=== PATIENT | female | born 1985 | race Caucasian/White ===

== ENCOUNTER → 2017-01-23 | Outpatient (CLI) | payer BC | LOC: MW.CHOBGYN 10:32 | PROVIDERS: ATTEND Nurse Practitioner Women's Health | DX: K92.1 Melena (principal) | CPT/HCPCS: 82272; 83630; 87324 ==

== ENCOUNTER 2019-08-05 06:32 | Day surgery (SDC) | payer BC ==
[2019-08-05] MEDS ORDERED: Midazolam 1 MG/ML 2 ML SDV ONE (07:32)
[2019-08-05] MEDS ORDERED: fentaNYL 100 MCG/2 ML SDV ONE ×2 (07:33→10:28)
[2019-08-05] MEDS ORDERED: Lidocaine 2% 5 ML SDV ONE (07:34)
[2019-08-05] MEDS ORDERED: Propofol 200 MG/20 ML SDV ONE (07:36)
[2019-08-05] MEDS ORDERED: Vasopressin 20 Units/1 ML MDV ONE (07:37)
[2019-08-05] MEDS ORDERED: Methylene Blue 50 MG/10 ML Ampule ONE (07:37)
[2019-08-05] MEDS ORDERED: Rocuronium 100 MG/10 ML Syringe ONE (07:37)
[2019-08-05] MEDS ORDERED: Bupivacaine 0.25% 10 ML SDV ONE (07:37)
[2019-08-05] MEDS ORDERED: Fluorescein 5 ML Vial ONE (07:37)
--- NOTE | 2019-08-05 07:46 | PCM.PREANE ---
Preanesthetic Assessment - Anesthesia/Transfusion/Family Hx Anesthesia History: Prior Anesthesia Without Reaction Family History of Anesthesia Reaction: No Transfusion History: No Prior Transfusion(s) Intubation History: Unknown - Review of Systems General: No Symptoms Pulmonary: No Symptoms Cardiovascular: No Symptoms Gastrointestinal: No Symptoms Neurological: No Symptoms Other: Reports: Anxiety - Physical Assessment Vital Signs: Last Vital Signs Temp 97.5 F 08/05/19 06:53 Pulse 100 08/05/19 06:53 Resp 14 08/05/19 06:53 BP 120/81 08/05/19 06:53 Pulse Ox 97 08/05/19 06:53 Height: 5 ft 3 in Weight: 66.678 kg ASA Class: 2 Mental Status: Alert & Oriented x3 Airway Class: Mallampati = 2 Dentition: Reports: Normal Dentition ROM/Head Extension: Full Lungs: Clear to Auscultation, Normal Respiratory Effort Cardiovascular: Regular Rate, Regular Rhythm - Lab Values: Laboratory Last Values WBC 5.87 K/uL (4.0-11.0) 08/05/19 06:45 RBC 4.41 M/uL (4.30-5.90) 08/05/19 06:45 Hgb 13.1 g/dL (12.0-16.0) 08/05/19 06:45 Hct 39.6 % (36.0-46.0) 08/05/19 06:45 MCV 89.8 fL (80.0-98.0) 08/05/19 06:45 MCH 29.7 pg (27.0-32.0) 08/05/19 06:45 MCHC 33.1 g/dL (31.0-37.0) 08/05/19 06:45 RDW Std Deviation 43.3 fl (28.0-62.0) 08/05/19 06:45 RDW Coeff of Rip 13 % (11.0-15.0) 08/05/19 06:45 Plt Count 217 K/uL (150-400) 08/05/19 06:45 MPV 11.00 fL (7.40-12.00) 08/05/19 06:45 Neut % (Auto) 48.7 % (48.0-80.0) 08/05/19 06:45 Lymph % (Auto) 39.9 % (16.0-40.0) 08/05/19 06:45 Howell % (Auto) 11.2 % (0.0-15.0) 08/05/19 06:45 Eos % (Auto) 0.0 % (0.0-7.0) 08/05/19 06:45 Baso % (Auto) 0.2 % (0.0-1.5) 08/05/19 06:45 Neut # (Auto) 2.9 K/uL (1.4-5.7) 08/05/19 06:45 Lymph # (Auto) 2.3 K/uL (0.6-2.4) 08/05/19 06:45 Howell # (Auto) 0.7 K/uL (0.0-0.8) 08/05/19 06:45 Eos # (Auto) 0.0 K/uL (0.0-0.7) 08/05/19 06:45 Baso # (Auto) 0.0 K/uL (0.0-0.1) 08/05/19 06:45 Nucleated RBC % 0.0 /100WBC 08/05/19 06:45 Nucleated RBCs # 0 K/uL 08/05/19 06:45 HCG, Qual NEGATIVE (NEG) 08/05/19 06:45 - Allergies Allergies/Adverse Reactions: Allergies Allergy/AdvReac Type Severity Reaction Status Date / Time No Known Allergies Allergy Verified 07/31/19 08:35 - Blood Blood Available: No - Acknowledgements Anesthesia Type Planned: General Anesthesia Pt an Appropriate Candidate for the Planned Anesthesia: Yes Alternatives and Risks of Anesthesia Discussed w Pt/Guardian: Yes Pt/Guardian Understands and Agrees with Anesthesia Plan: Yes Additional Comments: Anes prob list: sorgrens- eyes and mouth, AUB- prob fibroids, palpitations- thought to be benign, anxiety, PLAN: GET PreAnesthesia Questionnaire HEENT History: Reports: Other (See Below) Other HEENT History: wears glasses, has bottom permanent retainer, chronic sinusitis Cardiovascular History: Reports: None Respiratory History: Reports: None Gastrointestinal History: Reports: None Genitourinary History: Reports: None 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 Musculoskeletal History: Reports: Fracture Neurological History: Reports: None Psychiatric History: Reports: None Endocrine/Metabolic History: Reports: None Hematologic History: Reports: None Immunologic History: Reports: Other (See Below) Oncologic (Cancer) History: Reports: None Dermatologic History: Reports: None - Infectious Disease History Infectious Disease History: Reports: Chicken Pox - Past Surgical History Head Surgeries/Procedures: Reports: None HEENT Surgical History: Reports: Tonsillectomy Cardiovascular Surgical History: Reports: None Respiratory Surgical History: Reports: None GI Surgical History: Reports: Cholecystectomy Female Surgical History: Reports: None Endocrine Surgical History: Reports: None Neurological Surgical History: Reports: None Musculoskeletal Surgical History: Reports: Other (See Below) Other Musculoskeletal Surgeries/Procedures:: Right and left arm surgery, (left x3, rt x1) with hardware removal Oncologic Surgical History: Reports: None Dermatological Surgical History: Reports: Other (See Below) - SUBSTANCE USE Smoking Status *Q: Former Smoker Recreational Drug Use History: No - HOME MEDS Home Medications: Home Meds Norgestimate-Ethinyl Estradiol [Ortho Tri-Cyclen 28 Tablet] 1 tab PO DAILY 10/15 [History] Zolpidem Tartrate [Zolpidem Tartrate ER] 1 tab PO BEDTIME PRN 10/15/18 [History] LORazepam [Ativan] 1 tab PO ONETIME 07/31/19 [History] Sertraline HCl 50 mg PO DAILY 07/31/19 [History] - CURRENT (IN HOUSE) MEDS Current Meds: Current Medications Discontinued Medications Bupivacaine HCl (Sensorcaine-Mpf 0.25%) Confirm Administered Dose 20 ml .ROUTE .STK-MED ONE Stop: 08/05/19 07:38 Fentanyl (Sublimaze) Confirm Administered Dose 100 mcg .ROUTE .STK-MED ONE Stop: 08/05/19 07:34 Fluorescein Sodium (Ak-Fluor) Confirm Administered Dose 5 ml .ROUTE .STK-MED ONE Stop: 08/05/19 07:38 Lidocaine (Xylocaine-Mpf 2%) Confirm Administered Dose 5 ml .ROUTE .STK-MED ONE Stop: 08/05/19 07:35 Methylene Blue (Provayblue) Confirm Administered Dose 50 mg .ROUTE .STK-MED ONE Stop: 08/05/19 07:38 Midazolam HCl (Versed 1 Mg/Ml) Confirm Administered Dose 2 mg .ROUTE .STK-MED ONE Stop: 08/05/19 07:33 Propofol (Diprivan 20 Ml) Confirm Administered Dose 200 mg .ROUTE .STK-MED ONE Stop: 08/05/19 07:37 Rocuronium [place] (Zemuron) Confirm Administered Dose 100 mg .ROUTE .STK-MED ONE Stop: 08/05/19 07:38 Vasopressin (Vasopressin) Confirm Administered Dose 20 units .ROUTE .[place]-MED ONE Stop: 08/05/19 07:38
[2019-08-05] MEDS ORDERED: Ondansetron 4 MG/2 ML SDV ONE (09:59)
[2019-08-05] MEDS ORDERED: ePHEDrine 50 MG/ML SDV ONE (10:04)
[2019-08-05] MEDS ORDERED: Glycopyrrolate 0.2 MG/ML SDV ONE (10:04)
[2019-08-05] MEDS ORDERED: Ketorolac 30 MG/ML SDV ONE (10:05)
[2019-08-05] MEDS ORDERED: Sugammadex Sodium 200 MG/2 ML VIAL ONE (10:08)
--- NOTE | 2019-08-05 10:35 | PCM.OPNOTE ---
- General Post-Op/Procedure Note Date of Surgery/Procedure: 08/05/19 Operative Procedure(s): Diagnositc hysteroscopy and operative laparoscopy with peritoneal and chromopertubation Findings: Uterus 10 cm size anteverted, uterine cavity normal. Anterior intramural fibroid along with pedunculated fibroid on uterine fundus. Endocervical and endometrial curettings were collected and sent to pathology. Three dark implants were found in anterior culd-a-sac and biopsied. Pre Op Diagnosis: Pelvic pain, irregular periods, uterine fibroids Post-Op Diagnosis: Pelvic pain, irregular periods, uterine fibroids Anesthesia Technique: General ET Tube Primary Surgeon: Ruba Gruber Secondary Surgeon: Mike Downey Anesthesia Provider: Caesar Briscoe Core Microarchitect: Bebo John Pathology: 1. Anterior culdesac biopsy 2. Left anterior culdesac biopsy 3. Endocervical curettings 4. Endometrial curettings Fluid Replacement, Intraop: 1,600 EBL in mLs: 10 Drain/Tube Comments:: Hysteroscopic deficit was 20mL Complications: None known Condition: Good
[2019-08-05] MEDS ORDERED: HYDROmorphone 2 MG/ML Syringe IVPUSH PRN (10:43)
[2019-08-05] MEDS ORDERED: Acetaminophen 1,000 MG in Premix Bag 1 BAG IV PRN (10:43)
[2019-08-05] MEDS ORDERED: Acetaminophen/oxyCODONE 325-5 MG Tab PO PRN (11:52)
[2019-08-05 12:32] VITALS: BP 116/80; PULSE 100
--- NOTE | 2019-08-05 12:38 | PCM48HPAN ---
Post Anesthesia Note - EVALUATION WITHIN 48HRS OF ANESTHETIC Vital Signs in Normal Range: Yes Patient Participated in Evaluation: Yes Respiratory Function Stable: Yes Airway Patent: Yes Cardiovascular Function Stable: Yes Hydration Status Stable: Yes Pain Control Satisfactory: Yes Nausea and Vomiting Control Satisfactory: Yes Mental Status Recovered: Yes Vital Signs: Last Vital Signs Temp 97.2 F 08/05/19 11:45 Pulse 100 08/05/19 12:31 Resp 14 08/05/19 12:31 BP 116/80 08/05/19 12:31 Pulse Ox 98 08/05/19 12:31
--- NOTE | 2019-08-05 12:38 | PCM.POSTAN ---
POST ANESTHESIA ASSESSMENT - MENTAL STATUS Mental Status: Alert, Oriented - VITAL SIGNS Vital Signs: Last Vital Signs Temp 97.2 F 08/05/19 11:45 Pulse 100 08/05/19 12:31 Resp 14 08/05/19 12:31 BP 116/80 08/05/19 12:31 Pulse Ox 98 08/05/19 12:31 - RESPIRATORY Respiratory Status: Respiratory Rate WNL, Airway Patent, O2 Saturation Stable - CARDIOVASCULAR CV Status: Pulse Rate WNL, Blood Pressure Stable - GASTROINTESTINAL GI Status: No Symptoms - POST OP HYDRATION Hydration Status: Adequate & Stable
--- NOTE | 2019-08-05 13:17 | OR ---
SURGEON: Ruba Gruber M.D. DATE OF PROCEDURE: 08/05/2019 PREOPERATIVE DIAGNOSES: Pelvic pain, uterine fibroids, abnormal bleeding. POSTOPERATIVE DIAGNOSES: Pelvic pain, uterine fibroids, abnormal bleeding, and endometriosis. PROCEDURES: Diagnostic hysteroscopy with fractional D and C, operative laparoscopy, biopsy and ablation of endometriosis, chromopertubation. PRIMARY SURGEON: Ruba Gruber M.D. FORESTRY SUPPORT SPECIALIST: Mike Downey MS-4. ANESTHESIA: General endotracheal. FLUIDS: 1600 mL crystalloid. ESTIMATED BLOOD LOSS: 10 mL. FINDINGS: Uterus 10 week size, anteverted, sounds to 7 cm. Hysteroscopic evaluation of the uterine cavity was normal with some redundant frondlike endometrium. Upon laparoscopy, there was an anterior intramural fibroid which was not pushing on the uterine cavity. There was also a pedunculated fundal fibroid. Bilateral tubes and ovaries appeared normal. Bilateral tubes were patent. In the anterior cul-de-sac, there were 3 dark implants consistent with endometriosis. No other discrete areas of endometriosis identified. The appendix appeared normal. The liver appeared normal. The gallbladder appeared surgically absent. COMPLICATIONS: None known. DISPOSITION: Stable to recovery. BRIEF HISTORY: This is a 34-year-old female. She has a long history of pelvic pain with pain starting from the time of ovulation up until the onset of menses. This has been getting worse over recent months. She has had evaluation for urinary tract infections, which has been negative or equivocal. Ultrasound just shows the known uterine fibroids and therefore she did desire to proceed with a diagnostic, possible operative laparoscopy with possible biopsy or ablation of endometriosis, lysis of adhesions, and other surgery as indicated. Due to the known fibroids to evaluate the endometrial cavity, she does desire to proceed with diagnostic possible operative hysteroscopy with fractional D and C with surgical risks discussed including bleeding, infection, uterine perforation with injury to surrounding organs, risk of fluid overload, risk of injury to visceral organs, risk of anesthesia, risk of thromboembolic event. Understanding all these risks, she does desire to proceed. DESCRIPTION OF PROCEDURE: With the patient in dorsal lithotomy position, under adequate general endotracheal anesthesia, the abdomen was prepped with chlorhexidine. The vaginal area was prepped with Betadine and draped in the usual fashion for laparoscopic vaginal surgery. The bladder was drained with a red Villanueva catheter. An appropriate time-out was held. Bimanual examination was performed with findings of a 10-week size anteverted uterus. Speculum was placed in the vagina. The cervix accepted a 5 mm hysteroscope without any dilatation. It had been sounded to 7 cm. The uterine cavity was well visualized. There was frondlike endometrium, somewhat irregular. Bilateral tubal ostia were visualized and appeared normal. There was no evidence of any protruding fibroid. The hysteroscope was completed with 20 mL deficit of normal saline. Sharp curettage of the endocervix was performed, and collected with a Cytobrush, sent for pathology specimen of endocervical curettings. Sharp curettage of the endometrium was then performed with a moderate amount of tissue obtained. ZUMI uterine manipulator was then placed into the uterine cervix. The speculum was removed. Marine Electrician Apprentice's gloves were changed. The patient was placed in a flat position and attention was then turned abdominally, where 3 mL of 0.25% Marcaine were injected inferior to the umbilicus. A transverse 6 mm incision was made with a scalpel. The anterior abdominal wall was elevated. Veress needle was inserted. Opening pressure was 3 mmHg. CO2 was insufflated to develop an adequate pneumoperitoneum of 13 mmHg. The 5 mm port was placed. A 5 mm laparoscope was placed into the abdominal cavity. There was no evidence of any trauma beneath the port placement site. The uterus was elevated. The pelvis was carefully inspected. The patient was placed in Trendelenburg position. Findings were as noted above, and a second port was placed 2 cm medial and cephalad from the anterior superior iliac spine on the left under direct visualization without any difficulty. The pelvis was then carefully inspected. The tubes and ovaries were inspected as well as the ovarian fossa, the posterior cul-de-sac and the anterior cul-de-sac with the finding of approximately 3 dark implants in the anterior cul-de-sac which were biopsied using the cup biopsy and cautery and 2 good biopsies were obtained, one on the right and one more toward the medial left and this also removed all the evidence of endometriosis, therefore further ablation was not required. The appendix and liver were inspected and were normal. The chromopertubation was performed. There was good flow from bilateral tubes. This being complete, the abdomen was desufflated. After the instruments were removed, the port sites were removed and the skin was closed with a running subcuticular suture of 4-0 Monocryl, followed by a Steri- Strip. The ZUMI uterine manipulator was removed. Final sponge, needle, and instrument counts were reported as correct. There were no known complications. The patient was transferred to recovery in good condition. MAC HAINES /[id number]
== END 2019-08-05 12:42 | disposition home or self-care (01) ==
LOC: MW.SDS 06:32
PROVIDERS: ATTEND Obstetrics & Gynecology
DX: N80.9 Endometriosis, unspecified (principal); Z87.891 Personal history of nicotine dependence; Z79.899 Other long term (current) drug therapy; Z79.890 Hormone replacement therapy
CPT/HCPCS: 36415; 58563; 84703; 85025; A9270; J0131; J1170; J1885; J2001; J2250; J2405; J2704; J3010; J3490; 88305

== ENCOUNTER 2020-07-10 11:33 | Inpatient (IN) | payer BC, OTHER ==
[2020-07-10 12:41] LABS: BLOOD UREA NITROGEN,BUN 10 mg/dL (7.0-18.0); CARBON DIOXIDE,CO2 22.8 mmol/L (21.0-32.0); CHLORIDE,CL 101 mmol/L (98-107); GLUCOSE RANDOM 120 mg/dL (74-106); POTASSIUM,K 3.8 mmol/L (3.5-5.1); SODIUM,NA 132 mmol/L (136-145)
--- NOTE | 2020-07-10 13:03 | US ---
Biophysical profile: Multiple real-time images were obtained transabdominally. Comparison: Previous obstetrical ultrasound of 05/22/20 is available. presentation: Cephalic Amniotic fluid: VELVET 12.37 cm Heart rate: 120 BPM Biophysical profile: movement 2, breathing movement 2, tone 2, amniotic fluid volume 2 Impression: 1. Single intrauterine gestation currently cephalic in presentation. 2. 8 out of 8 on biophysical profile. Diagnostic code #1 This report was dictated in MDT
[2020-07-10] MEDS ORDERED: Carboprost Tromethamine 250 MCG/1 ML Amp IM PRN (13:21)
[2020-07-10] MEDS ORDERED: Misoprostol 200 MCG Tab PO PRN (13:21)
[2020-07-10] MEDS ORDERED: Sodium Chloride 0.9% 2.5 ML Syringe FLUSH PRN ×2 (13:21→13:27)
[2020-07-10] MEDS ORDERED: Butorphanol 1 MG/ML SDV IVPUSH PRN (13:21)
[2020-07-10] MEDS ORDERED: Ondansetron 4 MG/2 ML SDV IVPUSH PRN (13:21)
[2020-07-10] MEDS ORDERED: Methylergonovine 0.2 MG/1 ML Amp IM PRN (13:21)
[2020-07-10] MEDS ORDERED: Tranexamic Acid 1,000 MG in Sodium Chloride 0.9% 100 ML IV PRN (13:21)
[2020-07-10] MEDS ORDERED: Lidocaine 1% 50 ML MDV INJECT PRN (13:21)
[2020-07-10] MEDS ORDERED: Water For Irrigation,Sterile 1,000 ML Container IRR PRN (13:21)
[2020-07-10] MEDS ORDERED: Nalbuphine 10 MG/1 ML Vial IVPUSH PRN (13:21)
[2020-07-10] MEDS ORDERED: Sodium Chloride 0.9% 10 ML SDV IV PRN ×2 (13:21→13:27)
[2020-07-10] MEDS ORDERED: Sodium Chloride 0.9% 10 ML Syringe FLUSH PRN ×2 (13:21→13:27)
[2020-07-10] MEDS ORDERED: Misoprostol 25 MCG (1/4 of 100 MCG) Tab VAG PRN (13:25)
[2020-07-10] MEDS ORDERED: Terbutaline 1 MG/ML SDV SUBCUT PRN (13:25)
[2020-07-10] MEDS ORDERED: Magnesium Sulfate/Water 4 GM in Premix Bag 1 BAG IV ONE (13:27)
[2020-07-10] MEDS ORDERED: Calcium Gluconate 10% 1 GM/10 ML SDV IV PRN (13:27)
[2020-07-10] MEDS ORDERED: Lactated Ringers 1,000 ML IV SCH (13:30)
[2020-07-10] MEDS ORDERED: Oxytocin/0.9 % Sodium Chloride 30 UNIT/500 ML BAG IV SCH ×2 (13:30)
[2020-07-10] MEDS ORDERED: Sertraline 50 MG Tab PO ONE (13:48)
[2020-07-10] MEDS ORDERED: Sodium Chloride 0.9% 1,000 ML IV SCH (14:45)
[2020-07-10] MEDS: Magnesium Sulfate/Water 20 GM/500 ML BAG IV SCH (15:42)
[2020-07-10] MEDS ORDERED: Acetaminophen 500 MG Tab PO ONE ×2 (18:01→22:35)
[2020-07-10] MEDS ORDERED: Acetaminophen 500 MG Tab ONE (18:11)
[2020-07-10] MEDS: Misoprostol 25 MCG (1/4 of 100 MCG) Tab VAG PRN ×2 (19:41→23:57)
[2020-07-10] MEDS ORDERED: Citric Acid/Sodium Citrate Solution 30 ML Cup PO ONE (20:25)
[2020-07-10] MEDS ORDERED: Metoclopramide 10 MG/2 ML SDV IVPUSH ONE (22:34)
[2020-07-11] MEDS: Magnesium Sulfate/Water 20 GM/500 ML BAG IV SCH ×2 (01:55→17:38)
[2020-07-11] MEDS: Misoprostol 25 MCG (1/4 of 100 MCG) Tab VAG PRN (06:31)
[2020-07-11] MEDS ORDERED: Metoclopramide 10 MG/2 ML SDV IVPUSH ONE (06:52)
[2020-07-11] MEDS ORDERED: Acetaminophen 500 MG Tab PO ONE (06:53)
[2020-07-11] MEDS ORDERED: Ropivacaine HCl/PF 100 ML ONE (10:20)
[2020-07-11] MEDS ORDERED: fentaNYL 100 MCG/2 ML SDV ONE (10:20)
--- NOTE | 2020-07-11 10:50 | PCM.PREANE ---
Preanesthetic Assessment - Anesthesia/Transfusion/Family Hx Anesthesia History: Prior Anesthesia Without Reaction Family History of Anesthesia Reaction: No Transfusion History: No Prior Transfusion(s) Intubation History: Unknown - Physical Assessment NPO Status Date: 07/11/20 NPO Status Time: 05:00 Height: 1.63 m Weight: 78.018 kg ASA Class: 2 - Lab Values: Laboratory Last Values WBC 9.56 K/uL (4.0-11.0) 07/10/20 12:05 RBC 3.55 M/uL (4.30-5.90) L 07/10/20 12:05 Hgb 10.7 g/dL (12.0-16.0) L 07/10/20 12:05 Hct 32.2 % (36.0-46.0) L 07/10/20 12:05 MCV 90.7 fL (80.0-98.0) 07/10/20 12:05 MCH 30.1 pg (27.0-32.0) 07/10/20 12:05 MCHC 33.2 g/dL (31.0-37.0) 07/10/20 12:05 RDW Std Deviation 46.7 fl (28.0-62.0) 07/10/20 12:05 RDW Coeff of Rip 14 % (11.0-15.0) 07/10/20 12:05 Plt Count 118 K/uL (150-400) L 07/10/20 12:05 MPV 12.60 fL (7.40-12.00) H 07/10/20 12:05 Nucleated RBC % 0.0 /100WBC 07/10/20 12:05 Nucleated RBCs # 0 K/uL 07/10/20 12:05 Sodium 132 mmol/L (136-145) L 07/10/20 12:05 Potassium 3.8 mmol/L (3.5-5.1) 07/10/20 12:05 Chloride 101 mmol/L (98-107) 07/10/20 12:05 Carbon Dioxide 22.8 mmol/L (21.0-32.0) 07/10/20 12:05 BUN 10 mg/dL (7.0-18.0) 07/10/20 12:05 Creatinine 0.8 mg/dL (0.6-1.0) 07/10/20 12:05 Est Cr Clr Drug Dosing 86.37 mL/min 07/10/20 12:05 Estimated GFR (MDRD) > 60.0 ml/min 07/10/20 12:05 Glucose 120 mg/dL (74-106) H 07/10/20 12:05 Uric Acid 5.2 mg/dL (2.6-7.2) 07/10/20 12:05 Calcium 8.2 mg/dL (8.5-10.1) L 07/10/20 12:05 Magnesium 6.5 mg/dL (1.8-2.4) H 07/11/20 07:48 Total Bilirubin 0.2 mg/dL (0.2-1.0) 07/10/20 12:05 AST 18 IU/L (15-37) 07/10/20 12:05 ALT 15 IU/L (14-63) 07/10/20 12:05 Alkaline Phosphatase 228 U/L (46-116) H 07/10/20 12:05 Total Protein 6.7 g/dL (6.4-8.2) 07/10/20 12:05 Albumin 2.4 g/dL (3.4-5.0) L 07/10/20 12:05 Globulin 4.3 g/dL (2.6-4.0) H 07/10/20 12:05 Albumin/Globulin Ratio 0.6 (0.9-1.6) L 07/10/20 12:05 Ur Random Creatinine 143.8 mg/dL 07/10/20 12:50 U Random Total Protein 40.1 mg/dL (<11.9) H 07/10/20 12:50 Protein/Creatinin Ratio 0.3 07/10/20 12:50 COVID-19 (WILL) NEGATIVE (NEGATIVE) 07/10/20 14:15 Blood Type A NEGATIVE 07/10/20 14:10 Antibody Screen NEGATIVE 07/10/20 14:10 - Allergies Allergies/Adverse Reactions: Allergies Allergy/AdvReac Type Severity Reaction Status Date / Time No Known Allergies Allergy Verified 07/10/20 11:48 - Acknowledgements Anesthesia Type Planned: Epidural Pt an Appropriate Candidate for the Planned Anesthesia: Yes Alternatives and Risks of Anesthesia Discussed w Pt/Guardian: Yes Pt/Guardian Understands and Agrees with Anesthesia Plan: Yes PreAnesthesia Questionnaire - Past Health History Medical/Surgical History: Denies Medical/Surgical History HEENT History: Reports: Other (See Below) Other HEENT History: wears glasses, has bottom permanent retainer, chronic sinusitis Cardiovascular History: Reports: None Respiratory History: Reports: None Gastrointestinal History: Reports: None Genitourinary History: Reports: None 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 Musculoskeletal History: Reports: Fracture Neurological History: Reports: None Psychiatric History: Reports: None Endocrine/Metabolic History: Reports: None Hematologic History: Reports: None Immunologic History: Reports: Other (See Below) Oncologic (Cancer) History: Reports: None Dermatologic History: Reports: None - Infectious Disease History Infectious Disease History: Reports: Chicken Pox - Past Surgical History Head Surgeries/Procedures: Reports: None HEENT Surgical History: Reports: Tonsillectomy Cardiovascular Surgical History: Reports: None Respiratory Surgical History: Reports: None GI Surgical History: Reports: Cholecystectomy Female Surgical History: Reports: None Endocrine Surgical History: Reports: None Neurological Surgical History: Reports: None Musculoskeletal Surgical History: Reports: Other (See Below) Other Musculoskeletal Surgeries/Procedures:: Right and left arm surgery, (left x3, rt x1) with hardware removal Oncologic Surgical History: Reports: None Dermatological Surgical History: Reports: Other (See Below) - SUBSTANCE USE Smoking Status *Q: Never Smoker Second Hand Smoke Exposure: No Recreational Drug Use History: No - HOME MEDS Home Medications: Home Meds Sertraline HCl 50 mg PO BEDTIME 07/31/19 [History] Iron 1 tab PO DAILY 05/22/20 [History] Pnv No.95/Ferrous Fum/Folic AC [ Vitamin Tablet] 1 tab PO DAILY 05/22/20 [History] traZODone HCl [Trazodone HCl] 1 tab PO DAILY 05/22/20 [History] - CURRENT (IN HOUSE) MEDS Current Meds: Current Medications Butorphanol Tartrate (Stadol) 1 mg IVPUSH Q1H PRN PRN Reason: Pain Calcium Gluconate (Calcium Gluconate) 1 gm IV ASDIRECTED PRN PRN Reason: respiratory distress Carboprost Tromethamine (Hemabate Ds) 250 mcg IM ASDIRECTED PRN PRN Reason: Post Hemorrhage Lactated Ringer's (Ringers, Lactated) 1,000 mls @ 150 mls/hr IV ASDIRECTED MARYBEL Last Admin: 07/10/20 14:20 Dose: 150 mls/hr Documented by: Oxytocin/Sodium Chloride (Oxytocin 30 Unit/500 Ml-Ns) 30 unit in 500 mls @ 500 mls/hr IV TITRATE [facility] Tranexamic Acid 1,000 mg/ (Sodium Chloride) 110 mls @ 660 mls/hr IV ONETIME PRN PRN Reason: Bleeding Oxytocin/Sodium Chloride (Oxytocin 30 Unit/500 Ml-Ns) 30 unit in 500 mls @ 2 mls/hr IV TITRATE [facility]; Protocol Magnesium Sulfate (Magnesium Sulfate In Water Premix) 20 gm in 500 mls @ 50 mls/hr IV ASDIRECTED [facility] Last Admin: 07/11/20 01:55 Dose: 2 gm/hr, 50 mls/hr Documented by: Sodium Chloride (Normal Saline) 1,000 mls @ 5 mls/hr IV ASDIRECTED [facility] Lidocaine HCl (Xylocaine 1%) 50 ml INJECT ONETIME PRN PRN Reason: Laceration repair Methylergonovine Maleate (Methergine) 0.2 mg IM ASDIRECTED PRN PRN Reason: Post Hemorrhage Misoprostol (Cytotec) 200 mcg PO ONETIME PRN PRN Reason: Post Hemorrhage Misoprostol (Cytotec) 25 mcg VAG ONETIME PRN PRN Reason: Cervical Ripening Last Admin: 07/10/20 15:50 Dose: 25 mcg Documented by: Misoprostol (Cytotec) 25 mcg VAG Q4H PRN PRN Reason: Cervical Ripening Last Admin: 07/11/20 06:31 Dose: 25 mcg Documented by: Nalbuphine HCl (Nubain) 10 mg IVPUSH Q1H PRN PRN Reason: Pain (severe 7-10) Ondansetron HCl (Zofran) 4 mg IVPUSH Q4H PRN PRN Reason: Nausea/Vomiting Sodium Chloride (Saline Flush) 10 ml FLUSH ASDIRECTED PRN PRN Reason: Keep Vein Open Sodium Chloride (Saline Flush) 2.5 ml FLUSH ASDIRECTED PRN PRN Reason: Keep Vein Open Sodium Chloride (Normal Saline) 10 ml IV ASDIRECTED PRN PRN Reason: IV Use Sodium Chloride (Saline Flush) 10 ml FLUSH ASDIRECTED PRN PRN Reason: Keep Vein Open Sodium Chloride (Saline Flush) 2.5 ml FLUSH ASDIRECTED PRN PRN Reason: Keep Vein Open Sodium Chloride (Normal Saline) 10 ml IV ASDIRECTED PRN PRN Reason: IV Use Sterile Water (Sterile Water For Irrigation) 1,000 ml IRR ASDIRECTED PRN PRN Reason: delivery Terbutaline Sulfate (Brethine) 0.25 mg SUBCUT ASDIRECTED PRN PRN Reason: Tacysystole Discontinued Medications Acetaminophen (Tylenol Extra Strength) 1,000 mg PO NOW ONE Stop: 07/10/20 18:02 Last Admin: 07/10/20 18:16 Dose: 1,000 mg Documented by: Acetaminophen (Tylenol Extra Strength) Confirm Administered Dose 1,000 mg .ROUTE .STK-MED ONE Stop: 07/10/20 18:12 Acetaminophen (Tylenol Extra Strength) 500 mg PO ONETIME ONE Stop: 07/10/20 22:36 Last Admin: 07/10/20 22:52 Dose: 500 mg Documented by: Acetaminophen (Tylenol Extra Strength) 500 mg PO ONETIME ONE Stop: 07/11/20 06:54 Last Admin: 07/11/20 07:56 Dose: 500 mg Documented by: Fentanyl (Sublimaze) Confirm Administered Dose 100 mcg .ROUTE .STK-MED ONE Stop: 07/11/20 10:21 Magnesium Sulfate 4 gm/ Premix 100 mls @ 300 mls/hr IV BOLUS ONE Stop: 07/10/20 13:46 Last Admin: 07/10/20 15:17 Dose: 300 mls/hr Documented by: Ropivacaine (Naropin 0.2%) Confirm Administered Dose 100 mls @ as directed .ROUTE .STK-MED ONE Stop: 07/11/20 10:21 Metoclopramide HCl (Reglan) 10 mg IVPUSH ONETIME ONE Stop: 07/10/20 22:35 Last Admin: 07/10/20 22:51 Dose: 10 mg Documented by: Metoclopramide HCl (Reglan) 10 mg IVPUSH ONETIME ONE Stop: 07/11/20 06:53 Last Admin: 07/11/20 07:57 Dose: 10 mg Documented by: Sertraline HCl (Zoloft) 50 mg PO ONETIME ONE Stop: 07/10/20 13:49 Last Admin: 07/10/20 14:05 Dose: 50 mg Documented by:
[2020-07-11] MEDS ORDERED: Lidocaine 2% with EPINEPHrine 1:100,000 20 ML MDV ONE (10:51)
--- NOTE | 2020-07-11 11:40 | CR ---
Abdomen: Supine view of the abdomen was obtained. Linear opacity is seen within the upper right abdomen. Uncertain if this represents marker for a lap sponge or whether this is external to the patient. Linear density is seen across the abdomen presumably outside. Soft tissue density compatible with enlarged uterus. Surgical clips are seen from prior cholecystectomy. Impression: 1. Linear density within the upper right abdomen, uncertain if this is outside the patient or represents marker for lap sponge. Please correlate. 2. Linear density across the abdomen presumably external. 3. Enlarged uterus. Diagnostic code #5 Study was dictated in MDT
--- NOTE | 2020-07-11 12:20 | PCM.PRNOTE ---
- Free Text/Narrative Note: Anes Note Patient requests epidural for L&D. Sitting position, Level L3-L4 midline approach. Sterile technique, chloraprep scrub to lumbar area. Sterle fenestrated drape applied. Epidural space easily achieved single attempt with ease using VIKASH technique. VIKASH at 3 cm. Cath threaded 5 cm wioth ease. Cath secured at skin at 9 cm. Test 3 cc 1,5% lido with epi negative. Load 5 plus 5 cc 0.2% ropiv with 1 mcg cc fentanyl in slow divided doses. Pump started with 90 cc same solution at rate of 8 cc hr with 6 cc bolus q 20 min. Good analgesia. Brian well. See nurses notes for exact times. Shortly later, I was called to assess patient her left arm was folded up and not reading an accurate BP. Left arm straightened, and BP was 120 systolic repeatedly. For 3 or 4 cycles bp was 120. Howeverm the heart rate was slowing, despite mother being normtensive. A stat c section was called, and baby delivered by c section in a very rapid fashion. Good analgesia was obtained with epidural. Time with patient [id number] Ronal Garay CRNA
--- NOTE | 2020-07-11 12:22 | PCM.OPNOTE ---
<Ariana Henderson - Last Filed: 07/11/20 12:16> - General Post-Op/Procedure Note Date of Surgery/Procedure: 07/11/20 Operative Procedure(s): STAT primary low-transverse for non-reassuring heart tones Pre Op Diagnosis: IOL for preeclampsia with severe features Post-Op Diagnosis: Same Anesthesia Technique: Epidural Secondary Surgeon: Willi Downs Anesthesia Provider: Ronal Garay Steward/Stewardess [employer] Class: Ariana Henderson Pathology: Placenta with intact membranes Fluid Replacement, Intraop: 1,800 EBL in mLs: 600 Complications: None known Condition: Good Free Text/Narrative:: Liveborn female born via stat primary low-transverse due to nonreassuring heart tones (prolonged bradycardia >4 minutes) at 1058 weighing 2810g, APGARs 6 and 8, decision time to delivery 8 minutes, infant doing well, mom progressing well, blood pressures stable <Willi Downs - Last Filed: 07/11/20 12:38> - General Post-Op/Procedure Note Operative Procedure(s): Primary Lower Transverse . Stat Pre Op Diagnosis: Preclampsia with severe features. Bradycardia Post-Op Diagnosis: same Output, Urine Amount: 50 Free Text/Narrative:: Intake & Output 07/10/20 07/11/20 07/11/20 22:59 06:59 14:59 Intake Total 315 1260 1800 Output Total 400 1080 Balance -85 180 1800
--- NOTE | 2020-07-11 12:25 | PCM.POSTAN ---
POST ANESTHESIA ASSESSMENT - MENTAL STATUS Mental Status: Alert - RESPIRATORY Respiratory Status: Respiratory Rate WNL - CARDIOVASCULAR CV Status: Pulse Rate WNL - GASTROINTESTINAL GI Status: No Symptoms - POST OP HYDRATION Hydration Status: Adequate & Stable
[2020-07-11] MEDS ORDERED: diphenhydrAMINE 50 MG/ML SDV IVPUSH PRN (12:27)
[2020-07-11] MEDS ORDERED: Tranexamic Acid 1,000 MG in Sodium Chloride 0.9% 100 ML IV PRN (12:27)
[2020-07-11] MEDS ORDERED: Oxytocin 10 Units/1 ML SDV IM PRN (12:27)
[2020-07-11] MEDS ORDERED: Misoprostol 200 MCG Tab RECTAL PRN (12:27)
[2020-07-11] MEDS ORDERED: Methylergonovine 0.2 MG/1 ML Amp IM PRN (12:27)
[2020-07-11] MEDS ORDERED: Bisacodyl 10 MG Supp RECTAL PRN (12:27)
[2020-07-11] MEDS ORDERED: Ibuprofen 800 MG Tab PO PRN (12:27)
[2020-07-11] MEDS ORDERED: Lanolin 100% Cream 7 GM Tube TOP PRN (12:27)
[2020-07-11] MEDS ORDERED: Ondansetron 4 MG/2 ML SDV IVPUSH PRN (12:27)
[2020-07-11] MEDS ORDERED: Oxytocin/Lactated Ringers 30 UNIT/500 ML BAG IV SCH (12:30)
[2020-07-11] MEDS ORDERED: Lactated Ringers 1,000 ML IV SCH ×2 (12:30→17:15)
[2020-07-11] MEDS ORDERED: Ketorolac 30 MG/ML SDV IVPUSH SCH (12:30)
[2020-07-11] MEDS ORDERED: Morphine PF 10 MG/10 ML SDV ONE (12:52)
[2020-07-11] MEDS ORDERED: Ondansetron 4 MG/2 ML SDV ONE ×2 (12:52)
[2020-07-11] MEDS ORDERED: Propofol 200 MG/20 ML SDV ONE (12:52)
[2020-07-11] MEDS ORDERED: ceFAZolin 1 GM Vial ONE (12:52)
[2020-07-11] MEDS: Ketorolac 30 MG/ML SDV IVPUSH SCH (17:39)
[2020-07-11] MEDS ORDERED: Ampicillin/Sulbactam Na 3 GM in Sodium Chloride 0.9% 100 ML IV SCH (18:00)
[2020-07-11] MEDS: Ampicillin/Sulbactam Na 3 GM in Sodium Chloride 0.9% 100 ML IV SCH (18:38)
[2020-07-11] MEDS: Docusate Sodium 100 MG Cap PO SCH (21:17)
[2020-07-12] MEDS: Ketorolac 30 MG/ML SDV IVPUSH SCH ×4 (00:32→17:43)
[2020-07-12] MEDS: Ampicillin/Sulbactam Na 3 GM in Sodium Chloride 0.9% 100 ML IV SCH (00:36)
[2020-07-12] MEDS: Magnesium Sulfate/Water 20 GM/500 ML BAG IV SCH (04:53)
[2020-07-12 05:44] LABS: BLOOD UREA NITROGEN,BUN 7 mg/dL (7.0-18.0); CARBON DIOXIDE,CO2 25.7 mmol/L (21.0-32.0); CHLORIDE,CL 102 mmol/L (98-107); GLUCOSE RANDOM 101 mg/dL (74-106); POTASSIUM,K 4.5 mmol/L (3.5-5.1); SODIUM,NA 132 mmol/L (136-145)
--- NOTE | 2020-07-12 08:43 | PCM48HPAN ---
Post Anesthesia Note - EVALUATION WITHIN 48HRS OF ANESTHETIC Vital Signs in Normal Range: Yes Patient Participated in Evaluation: Yes Respiratory Function Stable: Yes Airway Patent: Yes Cardiovascular Function Stable: Yes Hydration Status Stable: Yes Pain Control Satisfactory: Yes Nausea and Vomiting Control Satisfactory: Yes Mental Status Recovered: Yes Vital Signs: Last Vital Signs Temp 36.2 C 07/12/20 04:45 Pulse 82 07/12/20 06:45 Resp 16 07/12/20 06:45 BP 132/79 07/12/20 06:45 Pulse Ox 96 07/12/20 06:45
--- NOTE | 2020-07-12 09:35 | PCM.PNPP ---
<Ariana Henderson - Last Filed: 07/12/20 09:58> - General Info Date of Service: 07/12/20 Admission Dx/Problem (Free Text): IOL for preeclampsia with severe features, stat primary low-transverse for bradycardia Subjective Update: Pain well controlled, on bed rest, song in, urine output good clear yellow urine, passing gas, tolerating clear liquids, SCDs on Functional Status: Reports: Pain Controlled, Incentive Spirometry Pain Score: 0 - Review of Systems General: Reports: No Symptoms HEENT: Reports: No Symptoms Pulmonary: Reports: No Symptoms Cardiovascular: Reports: No Symptoms Gastrointestinal: Reports: No Symptoms Genitourinary: Reports: No Symptoms Musculoskeletal: Reports: No Symptoms Skin: Reports: No Symptoms Neurological: Reports: No Symptoms Psychiatric: Reports: No Symptoms - General Info Date of Service: 07/12/20 - Patient Data Vital Signs - Most Recent: Last Vital Signs Temp 97.1 F 07/12/20 04:45 Pulse 82 07/12/20 06:45 Resp 16 07/12/20 06:45 BP 132/79 07/12/20 06:45 Pulse Ox 96 07/12/20 06:45 Weight - Most Recent: 78.018 kg I&O - Last 24 Hours: Intake & Output 07/11/20 07/12/20 07/12/20 22:59 06:59 14:59 Intake Total 1155 Output Total 645 1925 Balance -645 -770 Lab Results - Last 24 Hours: Laboratory Results - last 24 hr 07/11/20 07/11/20 07/11/20 Range/Units 11:10 12:35 12:35 WBC (4.0-11.0) K/uL RBC (4.30-5.90) M/uL Hgb (12.0-16.0) g/dL Hct (36.0-46.0) % MCV (80.0-98.0) fL MCH (27.0-32.0) pg MCHC (31.0-37.0) g/dL RDW Std Deviation (28.0-62.0) fl RDW Coeff of Rip (11.0-15.0) % Plt Count (150-400) K/uL MPV (7.40-12.00) fL Neutrophils % (Manual) (48.0-80.0) % Band Neutrophils % % Lymphocytes % (Manual) (16.0-40.0) % Monocytes % (Manual) (0.0-15.0) % Nucleated RBC % /100WBC Absolute Seg Neuts (1.4-5.7) Band Neutrophils # Lymphocytes # (Manual) (0.6-2.4) Monocytes # (Manual) (0.0-0.8) Cord ABG pH 7.264 (7.18-7.38) Cord ABG Base Excess -11 L (-10--2) Cord VBG pH 7.095 L (7.25-7.45) Cord VBG Base Excess -11 L (-10--2) Sodium (136-145) mmol/L Potassium (3.5-5.1) mmol/L Chloride (98-107) mmol/L Carbon Dioxide (21.0-32.0) mmol/L BUN (7.0-18.0) mg/dL Creatinine (0.6-1.0) mg/dL Est Cr Clr Drug Dosing mL/min Estimated GFR (MDRD) ml/min Glucose (74-106) mg/dL Calcium (8.5-10.1) mg/dL Magnesium 5.4 H (1.8-2.4) mg/dL Total Bilirubin (0.2-1.0) mg/dL AST (15-37) IU/L ALT (14-63) IU/L Alkaline Phosphatase (46-116) U/L Total Protein (6.4-8.2) g/dL Albumin (3.4-5.0) g/dL Globulin (2.6-4.0) g/dL Albumin/Globulin Ratio (0.9-1.6) Screen NEGATIVE (NEGATIVE) RhIG Candidate? YES Rhogam Indicated YES, BABY RH POS H 07/11/20 07/12/20 07/12/20 Range/Units 22:56 05:15 05:15 WBC 13.11 H (4.0-11.0) K/uL RBC 3.29 L (4.30-5.90) M/uL Hgb 9.9 L (12.0-16.0) g/dL Hct 30.2 L (36.0-46.0) % MCV 91.8 (80.0-98.0) fL MCH 30.1 (27.0-32.0) pg MCHC 32.8 (31.0-37.0) g/dL RDW Std Deviation 47.6 (28.0-62.0) fl RDW Coeff of Rip 14 (11.0-15.0) % Plt Count 130 L (150-400) K/uL MPV 11.40 (7.40-12.00) fL Neutrophils % (Manual) 85 H (48.0-80.0) % Band Neutrophils % 4 % Lymphocytes % (Manual) 7 L (16.0-40.0) % Monocytes % (Manual) 4 (0.0-15.0) % Nucleated RBC % 0.0 /100WBC Absolute Seg Neuts 11.1 H (1.4-5.7) Band Neutrophils # 0.5 Lymphocytes # (Manual) 0.9 (0.6-2.4) Monocytes # (Manual) 0.5 (0.0-0.8) Cord ABG pH (7.18-7.38) Cord ABG Base Excess (-10--2) Cord VBG pH (7.25-7.45) Cord VBG Base Excess (-10--2) Sodium 132 L (136-145) mmol/L Potassium 4.5 (3.5-5.1) mmol/L Chloride 102 (98-107) mmol/L Carbon Dioxide 25.7 (21.0-32.0) mmol/L BUN 7 (7.0-18.0) mg/dL Creatinine 1.0 (0.6-1.0) mg/dL Est Cr Clr Drug Dosing 69.10 mL/min Estimated GFR (MDRD) > 60.0 ml/min Glucose 101 (74-106) mg/dL Calcium 6.9 L (8.5-10.1) mg/dL Magnesium 6.0 H (1.8-2.4) mg/dL Total Bilirubin 0.1 L (0.2-1.0) mg/dL AST 24 (15-37) IU/L ALT 13 L (14-63) IU/L Alkaline Phosphatase 197 H (46-116) U/L Total Protein 5.7 L (6.4-8.2) g/dL Albumin 2.0 L (3.4-5.0) g/dL Globulin 3.7 (2.6-4.0) g/dL Albumin/Globulin Ratio 0.5 L (0.9-1.6) Screen (NEGATIVE) RhIG Candidate? Rhogam Indicated 07/12/20 Range/Units 05:15 WBC (4.0-11.0) K/uL RBC (4.30-5.90) M/uL Hgb (12.0-16.0) g/dL Hct (36.0-46.0) % MCV (80.0-98.0) fL MCH (27.0-32.0) pg MCHC (31.0-37.0) g/dL RDW Std Deviation (28.0-62.0) fl RDW Coeff of Rip (11.0-15.0) % Plt Count (150-400) K/uL MPV (7.40-12.00) fL Neutrophils % (Manual) (48.0-80.0) % Band Neutrophils % % Lymphocytes % (Manual) (16.0-40.0) % Monocytes % (Manual) (0.0-15.0) % Nucleated RBC % /100WBC Absolute Seg Neuts (1.4-5.7) Band Neutrophils # Lymphocytes # (Manual) (0.6-2.4) Monocytes # (Manual) (0.0-0.8) Cord ABG pH (7.18-7.38) Cord ABG Base Excess (-10--2) Cord VBG pH (7.25-7.45) Cord VBG Base Excess (-10--2) Sodium (136-145) mmol/L Potassium (3.5-5.1) mmol/L Chloride (98-107) mmol/L Carbon Dioxide (21.0-32.0) mmol/L BUN (7.0-18.0) mg/dL Creatinine (0.6-1.0) mg/dL Est Cr Clr Drug Dosing mL/min Estimated GFR (MDRD) ml/min Glucose (74-106) mg/dL Calcium (8.5-10.1) mg/dL Magnesium 6.6 H (1.8-2.4) mg/dL Total Bilirubin (0.2-1.0) mg/dL AST (15-37) IU/L ALT (14-63) IU/L Alkaline Phosphatase (46-116) U/L Total Protein (6.4-8.2) g/dL Albumin (3.4-5.0) g/dL Globulin (2.6-4.0) g/dL Albumin/Globulin Ratio (0.9-1.6) Screen (NEGATIVE) RhIG Candidate? Rhogam Indicated Med Orders - Current: Current Medications Bisacodyl (Dulcolax) 10 mg RECTAL ONETIME PRN PRN Reason: Constipation Butorphanol Tartrate (Stadol) 1 mg IVPUSH Q1H PRN PRN Reason: Pain Calcium Gluconate (Calcium Gluconate) 1 gm IV ASDIRECTED PRN PRN Reason: respiratory distress Carboprost Tromethamine (Hemabate Ds) 250 mcg IM ASDIRECTED PRN PRN Reason: Post Hemorrhage Diphenhydramine HCl (Benadryl) 25 mg IVPUSH Q6H PRN PRN Reason: Itching or Nausea Docusate Sodium (Colace) 100 mg PO BID [facility] Last Admin: 07/11/20 21:17 Dose: 100 mg Documented by: Emollient Ointment (Lansinoh Hpa) 0 gm TOP ASDIRECTED PRN PRN Reason: Sore Nipples Last Admin: 07/11/20 21:18 Dose: 7 gm Documented by: Lactated Ringer's (Ringers, Lactated) 1,000 mls @ 150 mls/hr IV ASDIRECTED [facility] Last Admin: 07/10/20 14:20 Dose: 150 mls/hr Documented by: Oxytocin/Sodium Chloride (Oxytocin 30 Unit/500 Ml-Ns) 30 unit in 500 mls @ 500 mls/hr IV TITRATE [facility] Tranexamic Acid 1,000 mg/ (Sodium Chloride) 110 mls @ 660 mls/hr IV ONETIME PRN PRN Reason: Bleeding Oxytocin/Sodium Chloride (Oxytocin 30 Unit/500 Ml-Ns) 30 unit in 500 mls @ 2 mls/hr IV TITRATE [facility]; Protocol Magnesium Sulfate (Magnesium Sulfate In Water Premix) 20 gm in 500 mls @ 50 mls/hr IV ASDIRECTED [facility] Last Admin: 07/12/20 04:53 Dose: 2 gm/hr, 50 mls/hr Documented by: Sodium Chloride (Normal Saline) 1,000 mls @ 5 mls/hr IV ASDIRECTED [facility] Last Admin: 07/11/20 14:45 Dose: 5 mls/hr Documented by: Lactated Ringer's (Ringers, Lactated) 1,000 mls @ 125 mls/hr IV ASDIRECTED [facility] Last Admin: 07/11/20 14:44 Dose: 125 mls/hr Documented by: Oxytocin/Lactated Ringer's (Pitocin In Lr 30 Units/500 Ml) 30 unit in 500 mls @ 125 mls/hr IV TITRATE [facility]; Protocol Tranexamic Acid 1,000 mg/ (Sodium Chloride) 110 mls @ 660 mls/hr IV ONETIME PRN PRN Reason: Bleeding Lactated Ringer's (Ringers, Lactated) 1,000 mls @ 30 mls/hr IV ASDIRECTED [facility] Ibuprofen (Motrin) 800 mg PO Q8H PRN PRN Reason: mild pain or fever Ketorolac Tromethamine (Toradol) 30 mg IVPUSH Q6H [facility] Stop: 07/12/20 18:01 Last Admin: 07/12/20 06:00 Dose: 30 mg Documented by: Lidocaine HCl (Xylocaine 1%) 50 ml INJECT ONETIME PRN PRN Reason: Laceration repair Methylergonovine Maleate (Methergine) 0.2 mg IM ASDIRECTED PRN PRN Reason: Post Hemorrhage Methylergonovine Maleate (Methergine) 0.2 mg IM ONETIME PRN PRN Reason: Excessive Vaginal Bleeding Misoprostol (Cytotec) 200 mcg PO ONETIME PRN PRN Reason: Post Hemorrhage Misoprostol (Cytotec) 25 mcg VAG ONETIME PRN PRN Reason: Cervical Ripening Last Admin: 07/10/20 15:50 Dose: 25 mcg Documented by: Misoprostol (Cytotec) 25 mcg VAG Q4H PRN PRN Reason: Cervical Ripening Last Admin: 07/11/20 06:31 Dose: 25 mcg Documented by: Misoprostol (Cytotec) 1,000 mcg RECTAL ONETIME PRN PRN Reason: excessive bleeding Nalbuphine HCl (Nubain) 10 mg IVPUSH Q1H PRN PRN Reason: Pain (severe 7-10) Ondansetron HCl (Zofran) 4 mg IVPUSH Q4H PRN PRN Reason: Nausea/Vomiting Last Admin: 07/11/20 17:24 Dose: 4 mg Documented by: Ondansetron HCl (Zofran) 4 mg IVPUSH Q4H PRN PRN Reason: Nausea/Vomiting Oxycodone/Acetaminophen (Percocet 325-5 Mg) 1 tab PO Q4H PRN PRN Reason: Pain (moderate 4-6) Oxycodone/Acetaminophen (Percocet 325-5 Mg) 2 tab PO Q4H PRN PRN Reason: Pain (moderate 4-6) Oxytocin (Pitocin) 10 unit IM ASDIRECTED PRN PRN Reason: Excessive Vaginal Bleeding Sodium Chloride (Saline Flush) 10 ml FLUSH ASDIRECTED PRN PRN Reason: Keep Vein Open Sodium Chloride (Saline Flush) 2.5 ml FLUSH ASDIRECTED PRN PRN Reason: Keep Vein Open Sodium Chloride (Normal Saline) 10 ml IV ASDIRECTED PRN PRN Reason: IV Use Sodium Chloride (Saline Flush) 10 ml FLUSH ASDIRECTED PRN PRN Reason: Keep Vein Open Sodium Chloride (Saline Flush) 2.5 ml FLUSH ASDIRECTED PRN PRN Reason: Keep Vein Open Sodium Chloride (Normal Saline) 10 ml IV ASDIRECTED PRN PRN Reason: IV Use Sterile Water (Sterile Water For Irrigation) 1,000 ml IRR ASDIRECTED PRN PRN Reason: delivery Terbutaline Sulfate (Brethine) 0.25 mg SUBCUT ASDIRECTED PRN PRN Reason: Tacysystole Discontinued Medications Acetaminophen (Tylenol Extra Strength) 1,000 mg PO NOW ONE Stop: 07/10/20 18:02 Last Admin: 07/10/20 18:16 Dose: 1,000 mg Documented by: Acetaminophen (Tylenol Extra Strength) Confirm Administered Dose 1,000 mg .ROUTE .STK-MED ONE Stop: 07/10/20 18:12 Acetaminophen (Tylenol Extra Strength) 500 mg PO ONETIME ONE Stop: 07/10/20 22:36 Last Admin: 07/10/20 22:52 Dose: 500 mg Documented by: Acetaminophen (Tylenol Extra Strength) 500 mg PO ONETIME ONE Stop: 07/11/20 06:54 Last Admin: 07/11/20 07:56 Dose: 500 mg Documented by: Cefazolin Sodium (Ancef) Confirm Administered Dose 2 gm .ROUTE .STK-MED ONE Stop: 07/11/20 12:53 Fentanyl (Sublimaze) Confirm Administered Dose 100 mcg .ROUTE .STK-MED ONE Stop: 07/11/20 10:21 Last Admin: 07/11/20 21:03 Dose: Not Given Documented by: Magnesium Sulfate 4 gm/ Premix 100 mls @ 300 mls/hr IV BOLUS ONE Stop: 07/10/20 13:46 Last Admin: 07/10/20 15:17 Dose: 300 mls/hr Documented by: Ropivacaine (Naropin 0.2%) Confirm Administered Dose 100 mls @ as directed .ROUTE .STK-MED ONE Stop: 07/11/20 10:21 Last Admin: 07/11/20 21:03 Dose: Not Given Documented by: Ampicillin Sodium/Sulbactam (Sodium 3 gm/ Sodium Chloride) 100 mls @ 200 mls/hr IV Q6H [facility] Stop: 07/12/20 00:29 Ampicillin Sodium/Sulbactam (Sodium 3 gm/ Sodium Chloride) 100 mls @ 200 mls/hr IV Q6H [facility] Stop: 07/12/20 00:59 Last Admin: 07/12/20 00:36 Dose: 200 mls/hr Documented by: Ibuprofen (Motrin) 800 mg PO Q8H PRN PRN Reason: mild pain or fever Ketorolac Tromethamine (Toradol) 30 mg IVPUSH Q6H [facility] Stop: 07/12/20 12:31 Metoclopramide HCl (Reglan) 10 mg IVPUSH ONETIME ONE Stop: 07/10/20 22:35 Last Admin: 07/10/20 22:51 Dose: 10 mg Documented by: Metoclopramide HCl (Reglan) 10 mg IVPUSH ONETIME ONE Stop: 07/11/20 06:53 Last Admin: 07/11/20 07:57 Dose: 10 mg Documented by: Morphine Sulfate (Duramorph Pf) Confirm Administered Dose 10 mg .ROUTE .STK-MED ONE Stop: 07/11/20 12:53 Ondansetron HCl (Zofran) Confirm Administered Dose 4 mg .ROUTE .STK-MED ONE Stop: 07/11/20 12:53 Ondansetron HCl (Zofran) Confirm Administered Dose 4 mg .ROUTE .STK-MED ONE Stop: 07/11/20 12:53 Propofol (Diprivan 20 Ml) Confirm Administered Dose 200 mg .ROUTE .STK-MED ONE Stop: 07/11/20 12:53 Sertraline HCl (Zoloft) 50 mg PO ONETIME ONE Stop: 07/10/20 13:49 Last Admin: 07/10/20 14:05 Dose: 50 mg Documented by: - Interaction Infant Disposition, : to Nursery Interaction: Not Applicable Infant Feeding: Bottle Fed Support Person: - Recovery Exam Fundal Tone: Firm Fundal Level: 1 Fingerbreadths Below Umbilicus Fundal Placement: Midline Lochia Amount: Scant, Small Lochia Color: Rubra/Red Perineum Description: Intact, Minimal Bruising/Swelling Episiotomy/Laceration: None Bladder Status: Indwelling Catheter in Place Urinary Elimination: Indwelling Catheter (clear yellow urine) - Exam General: Alert, Oriented HEENT: Pupils Equal Neck: Supple Lungs: Clear to Auscultation, Normal Respiratory Effort Cardiovascular: Regular Rate, Regular Rhythm GI/Abdominal Exam: Normal Bowel Sounds, Soft, Non-Tender, No Organomegaly, No Distention, No Abnormal Bruit, No Mass, Pelvis Stable Extremities: Normal Inspection, Normal Range of Motion, Non-Tender, No Pedal Edema, Normal Capillary Refill Skin: Warm, Dry, Intact Wound/Incisions: Healing Well Neurological: No New Focal Deficit Psy/Mental Status: Alert, Normal Affect, Normal Mood - Problem List & Annotations (1) Preeclampsia SNOMED Code(s): 404426438 Code(s): O14.90 - UNSPECIFIED PRE-ECLAMPSIA, UNSPECIFIED TRIMESTER Status: Acute Current Visit: Yes (2) S/P primary low transverse SNOMED Code(s): 058318295, 50849921, 751784522, 754208462, 409037112 Code(s): Z98.891 - HISTORY OF UTERINE SCAR FROM PREVIOUS SURGERY Status: Acute Current Visit: Yes - Problem List Review Problem List Initiated/Reviewed/Updated: Yes - Assessment Assessment:: 35 yo POD1 s/p stat primary low-transverse due to bradycardia, admitted for IOL due to severe preeclampsia, on magnesium, bed rest, clear liquid diet, in nursery, progressing well, BPs stable - Plan Plan:: 1. Routine postoperative and cares 2. GBS negative 3. Rubella immune 4. A negative, ab negative, - Rhogam given at 28 weeks and post- 5. Hx of preeclampsia with previous 6. Sjogren's syndrome 7. Magnesium x24 hrs post-delivery, vital signs q2hrs, serial magnesium levels, last magnesium level this am 6.4, serial neuro checks 8. IVFs, clear liquids as tolerated 9. Song in place, clear yellow urine 10. Scheduled Toradol, prn Motrin 11. VSD, in nursery, follow-up echo after discharge <Willi Downs - Last Filed: 07/12/20 11:22> - General Info Subjective Update: Patient on Magnessium , BP well controlled no severe range , has occasional headache - Patient Data Vital Signs - Most Recent: Last Vital Signs Temp 36.2 C 07/12/20 04:45 Pulse 82 07/12/20 06:45 Resp 16 07/12/20 06:45 BP 132/79 07/12/20 06:45 Pulse Ox 96 07/12/20 06:45 I&O - Last 24 Hours: Intake & Output 07/11/20 07/12/20 07/12/20 22:59 06:59 14:59 Intake Total 1155 Output Total 643 0505 Balance -645 -473 Lab Results - Last 24 Hours: Laboratory Results - last 24 hr 07/11/20 07/11/20 07/11/20 Range/Units 11:10 12:35 12:35 WBC (4.0-11.0) K/uL RBC (4.30-5.90) M/uL Hgb (12.0-16.0) g/dL Hct (36.0-46.0) % MCV (80.0-98.0) fL MCH (27.0-32.0) pg MCHC (31.0-37.0) g/dL RDW Std Deviation (28.0-62.0) fl RDW Coeff of Rip (11.0-15.0) % Plt Count (150-400) K/uL MPV (7.40-12.00) fL Neutrophils % (Manual) (48.0-80.0) % Band Neutrophils % % Lymphocytes % (Manual) (16.0-40.0) % Monocytes % (Manual) (0.0-15.0) % Nucleated RBC % /100WBC Absolute Seg Neuts (1.4-5.7) Band Neutrophils # Lymphocytes # (Manual) (0.6-2.4) Monocytes # (Manual) (0.0-0.8) Cord ABG pH 7.264 (7.18-7.38) Cord ABG Base Excess -11 L (-10--2) Cord VBG pH 7.095 L (7.25-7.45) Cord VBG Base Excess -11 L (-10--2) Sodium (136-145) mmol/L Potassium (3.5-5.1) mmol/L Chloride (98-107) mmol/L Carbon Dioxide (21.0-32.0) mmol/L BUN (7.0-18.0) mg/dL Creatinine (0.6-1.0) mg/dL Est Cr Clr Drug Dosing mL/min Estimated GFR (MDRD) ml/min Glucose (74-106) mg/dL Calcium (8.5-10.1) mg/dL Magnesium 5.4 H (1.8-2.4) mg/dL Total Bilirubin (0.2-1.0) mg/dL AST (15-37) IU/L ALT (14-63) IU/L Alkaline Phosphatase (46-116) U/L Total Protein (6.4-8.2) g/dL Albumin (3.4-5.0) g/dL Globulin (2.6-4.0) g/dL Albumin/Globulin Ratio (0.9-1.6) Screen NEGATIVE (NEGATIVE) RhIG Candidate? YES Rhogam Indicated YES, BABY RH POS H 07/11/20 07/12/20 07/12/20 Range/Units 22:56 05:15 05:15 WBC 13.11 H (4.0-11.0) K/uL RBC 3.29 L (4.30-5.90) M/uL Hgb 9.9 L (12.0-16.0) g/dL Hct 30.2 L (36.0-46.0) % MCV 91.8 (80.0-98.0) fL MCH 30.1 (27.0-32.0) pg MCHC 32.8 (31.0-37.0) g/dL RDW Std Deviation 47.6 (28.0-62.0) fl RDW Coeff of Rip 14 (11.0-15.0) % Plt Count 130 L (150-400) K/uL MPV 11.40 (7.40-12.00) fL Neutrophils % (Manual) 85 H (48.0-80.0) % Band Neutrophils % 4 % Lymphocytes % (Manual) 7 L (16.0-40.0) % Monocytes % (Manual) 4 (0.0-15.0) % Nucleated RBC % 0.0 /100WBC Absolute Seg Neuts 11.1 H (1.4-5.7) Band Neutrophils # 0.5 Lymphocytes # (Manual) 0.9 (0.6-2.4) Monocytes # (Manual) 0.5 (0.0-0.8) Cord ABG pH (7.18-7.38) Cord ABG Base Excess (-10--2) Cord VBG pH (7.25-7.45) Cord VBG Base Excess (-10--2) Sodium 132 L (136-145) mmol/L Potassium 4.5 (3.5-5.1) mmol/L Chloride 102 (98-107) mmol/L Carbon Dioxide 25.7 (21.0-32.0) mmol/L BUN 7 (7.0-18.0) mg/dL Creatinine 1.0 (0.6-1.0) mg/dL Est Cr Clr Drug Dosing 69.10 mL/min Estimated GFR (MDRD) > 60.0 ml/min Glucose 101 (74-106) mg/dL Calcium 6.9 L (8.5-10.1) mg/dL Magnesium 6.0 H (1.8-2.4) mg/dL Total Bilirubin 0.1 L (0.2-1.0) mg/dL AST 24 (15-37) IU/L ALT 13 L (14-63) IU/L Alkaline Phosphatase 197 H (46-116) U/L Total Protein 5.7 L (6.4-8.2) g/dL Albumin 2.0 L (3.4-5.0) g/dL Globulin 3.7 (2.6-4.0) g/dL Albumin/Globulin Ratio 0.5 L (0.9-1.6) Screen (NEGATIVE) RhIG Candidate? Rhogam Indicated 07/12/20 Range/Units 05:15 WBC (4.0-11.0) K/uL RBC (4.30-5.90) M/uL Hgb (12.0-16.0) g/dL Hct (36.0-46.0) % MCV (80.0-98.0) fL MCH (27.0-32.0) pg MCHC (31.0-37.0) g/dL RDW Std Deviation (28.0-62.0) fl RDW Coeff of Rip (11.0-15.0) % Plt Count (150-400) K/uL MPV (7.40-12.00) fL Neutrophils % (Manual) (48.0-80.0) % Band Neutrophils % % Lymphocytes % (Manual) (16.0-40.0) % Monocytes % (Manual) (0.0-15.0) % Nucleated RBC % /100WBC Absolute Seg Neuts (1.4-5.7) Band Neutrophils # Lymphocytes # (Manual) (0.6-2.4) Monocytes # (Manual) (0.0-0.8) Cord ABG pH (7.18-7.38) Cord ABG Base Excess (-10--2) Cord VBG pH (7.25-7.45) Cord VBG Base Excess (-10--2) Sodium (136-145) mmol/L Potassium (3.5-5.1) mmol/L Chloride (98-107) mmol/L Carbon Dioxide (21.0-32.0) mmol/L BUN (7.0-18.0) mg/dL Creatinine (0.6-1.0) mg/dL Est Cr Clr Drug Dosing mL/min Estimated GFR (MDRD) ml/min Glucose (74-106) mg/dL Calcium (8.5-10.1) mg/dL Magnesium 6.6 H (1.8-2.4) mg/dL Total Bilirubin (0.2-1.0) mg/dL AST (15-37) IU/L ALT (14-63) IU/L Alkaline Phosphatase (46-116) U/L Total Protein (6.4-8.2) g/dL Albumin (3.4-5.0) g/dL Globulin (2.6-4.0) g/dL Albumin/Globulin Ratio (0.9-1.6) Screen (NEGATIVE) RhIG Candidate? Rhogam Indicated Med Orders - Current: Current Medications Bisacodyl (Dulcolax) 10 mg RECTAL ONETIME PRN PRN Reason: Constipation Butorphanol Tartrate (Stadol) 1 mg IVPUSH Q1H PRN PRN Reason: Pain Calcium Gluconate (Calcium Gluconate) 1 gm IV ASDIRECTED PRN PRN Reason: respiratory distress Carboprost Tromethamine (Hemabate Ds) 250 mcg IM ASDIRECTED PRN PRN Reason: Post Hemorrhage Diphenhydramine HCl (Benadryl) 25 mg IVPUSH Q6H PRN PRN Reason: Itching or Nausea Docusate Sodium (Colace) 100 mg PO BID [facility] Last Admin: 07/11/20 21:17 Dose: 100 mg Documented by: Emollient Ointment (Lansinoh Hpa) 0 gm TOP ASDIRECTED PRN PRN Reason: Sore Nipples Last Admin: 07/11/20 21:18 Dose: 7 gm Documented by: Lactated Ringer's (Ringers, Lactated) 1,000 mls @ 150 mls/hr IV ASDIRECTED [facility] Last Admin: 07/10/20 14:20 Dose: 150 mls/hr Documented by: Oxytocin/Sodium Chloride (Oxytocin 30 Unit/500 Ml-Ns) 30 unit in 500 mls @ 500 mls/hr IV TITRATE [facility] Tranexamic Acid 1,000 mg/ (Sodium Chloride) 110 mls @ 660 mls/hr IV ONETIME PRN PRN Reason: Bleeding Oxytocin/Sodium Chloride (Oxytocin 30 Unit/500 Ml-Ns) 30 unit in 500 mls @ 2 mls/hr IV TITRATE [facility]; Protocol Magnesium Sulfate (Magnesium Sulfate In Water Premix) 20 gm in 500 mls @ 50 mls/hr IV ASDIRECTED [facility] Last Admin: 07/12/20 04:53 Dose: 2 gm/hr, 50 mls/hr Documented by: Sodium Chloride (Normal Saline) 1,000 mls @ 5 mls/hr IV ASDIRECTED [facility] Last Admin: 07/11/20 14:45 Dose: 5 mls/hr Documented by: Lactated Ringer's (Ringers, Lactated) 1,000 mls @ 125 mls/hr IV ASDIRECTED [facility] Last Admin: 07/11/20 14:44 Dose: 125 mls/hr Documented by: Oxytocin/Lactated Ringer's (Pitocin In Lr 30 Units/500 Ml) 30 unit in 500 mls @ 125 mls/hr IV TITRATE [facility]; Protocol Tranexamic Acid 1,000 mg/ (Sodium Chloride) 110 mls @ 660 mls/hr IV ONETIME PRN PRN Reason: Bleeding Lactated Ringer's (Ringers, Lactated) 1,000 mls @ 30 mls/hr IV ASDIRECTED [facility] Ibuprofen (Motrin) 800 mg PO Q8H PRN PRN Reason: mild pain or fever Ketorolac Tromethamine (Toradol) 30 mg IVPUSH Q6H [facility] Stop: 07/12/20 18:01 Last Admin: 07/12/20 06:00 Dose: 30 mg Documented by: Lidocaine HCl (Xylocaine 1%) 50 ml INJECT ONETIME PRN PRN Reason: Laceration repair Methylergonovine Maleate (Methergine) 0.2 mg IM ASDIRECTED PRN PRN Reason: Post Hemorrhage Methylergonovine Maleate (Methergine) 0.2 mg IM ONETIME PRN PRN Reason: Excessive Vaginal Bleeding Misoprostol (Cytotec) 200 mcg PO ONETIME PRN PRN Reason: Post Hemorrhage Misoprostol (Cytotec) 25 mcg VAG ONETIME PRN PRN Reason: Cervical Ripening Last Admin: 07/10/20 15:50 Dose: 25 mcg Documented by: Misoprostol (Cytotec) 25 mcg VAG Q4H PRN PRN Reason: Cervical Ripening Last Admin: 07/11/20 06:31 Dose: 25 mcg Documented by: Misoprostol (Cytotec) 1,000 mcg RECTAL ONETIME PRN PRN Reason: excessive bleeding Nalbuphine HCl (Nubain) 10 mg IVPUSH Q1H PRN PRN Reason: Pain (severe 7-10) Ondansetron HCl (Zofran) 4 mg IVPUSH Q4H PRN PRN Reason: Nausea/Vomiting Last Admin: 07/11/20 17:24 Dose: 4 mg Documented by: Ondansetron HCl (Zofran) 4 mg IVPUSH Q4H PRN PRN Reason: Nausea/Vomiting Oxycodone/Acetaminophen (Percocet 325-5 Mg) 1 tab PO Q4H PRN PRN Reason: Pain (moderate 4-6) Oxycodone/Acetaminophen (Percocet 325-5 Mg) 2 tab PO Q4H PRN PRN Reason: Pain (moderate 4-6) Oxytocin (Pitocin) 10 unit IM ASDIRECTED PRN PRN Reason: Excessive Vaginal Bleeding Sodium Chloride (Saline Flush) 10 ml FLUSH ASDIRECTED PRN PRN Reason: Keep Vein Open Sodium Chloride (Saline Flush) 2.5 ml FLUSH ASDIRECTED PRN PRN Reason: Keep Vein Open Sodium Chloride (Normal Saline) 10 ml IV ASDIRECTED PRN PRN Reason: IV Use Sodium Chloride (Saline Flush) 10 ml FLUSH ASDIRECTED PRN PRN Reason: Keep Vein Open Sodium Chloride (Saline Flush) 2.5 ml FLUSH ASDIRECTED PRN PRN Reason: Keep Vein Open Sodium Chloride (Normal Saline) 10 ml IV ASDIRECTED PRN PRN Reason: IV Use Sterile Water (Sterile Water For Irrigation) 1,000 ml IRR ASDIRECTED PRN PRN Reason: delivery Terbutaline Sulfate (Brethine) 0.25 mg SUBCUT ASDIRECTED PRN PRN Reason: Tacysystole Discontinued Medications Acetaminophen (Tylenol Extra Strength) 1,000 mg PO NOW ONE Stop: 07/10/20 18:02 Last Admin: 07/10/20 18:16 Dose: 1,000 mg Documented by: Acetaminophen (Tylenol Extra Strength) Confirm Administered Dose 1,000 mg .ROUTE .STK-MED ONE Stop: 07/10/20 18:12 Acetaminophen (Tylenol Extra Strength) 500 mg PO ONETIME ONE Stop: 07/10/20 22:36 Last Admin: 07/10/20 22:52 Dose: 500 mg Documented by: Acetaminophen (Tylenol Extra Strength) 500 mg PO ONETIME ONE Stop: 07/11/20 06:54 Last Admin: 07/11/20 07:56 Dose: 500 mg Documented by: Cefazolin Sodium (Ancef) Confirm Administered Dose 2 gm .ROUTE .STK-MED ONE Stop: 07/11/20 12:53 Fentanyl (Sublimaze) Confirm Administered Dose 100 mcg .ROUTE .STK-MED ONE Stop: 07/11/20 10:21 Last Admin: 07/11/20 21:03 Dose: Not Given Documented by: Magnesium Sulfate 4 gm/ Premix 100 mls @ 300 mls/hr IV BOLUS ONE Stop: 07/10/20 13:46 Last Admin: 07/10/20 15:17 Dose: 300 mls/hr Documented by: Ropivacaine (Naropin 0.2%) Confirm Administered Dose 100 mls @ as directed .ROUTE .STK-MED ONE Stop: 07/11/20 10:21 Last Admin: 07/11/20 21:03 Dose: Not Given Documented by: Ampicillin Sodium/Sulbactam (Sodium 3 gm/ Sodium Chloride) 100 mls @ 200 mls/hr IV Q6H MARYBEL Stop: 07/12/20 00:29 Ampicillin Sodium/Sulbactam (Sodium 3 gm/ Sodium Chloride) 100 mls @ 200 mls/hr IV Q6H MARYBEL Stop: 07/12/20 00:59 Last Admin: 07/12/20 00:36 Dose: 200 mls/hr Documented by: Ibuprofen (Motrin) 800 mg PO Q8H PRN PRN Reason: mild pain or fever Ketorolac Tromethamine (Toradol) 30 mg IVPUSH Q6H MARYBEL Stop: 07/12/20 12:31 Metoclopramide HCl (Reglan) 10 mg IVPUSH ONETIME ONE Stop: 07/10/20 22:35 Last Admin: 07/10/20 22:51 Dose: 10 mg Documented by: Metoclopramide HCl (Reglan) 10 mg IVPUSH ONETIME ONE Stop: 07/11/20 06:53 Last Admin: 07/11/20 07:57 Dose: 10 mg Documented by: Morphine Sulfate (Duramorph Pf) Confirm Administered Dose 10 mg .ROUTE .STK-MED ONE Stop: 07/11/20 12:53 Ondansetron HCl (Zofran) Confirm Administered Dose 4 mg .ROUTE .STK-MED ONE Stop: 07/11/20 12:53 Ondansetron HCl (Zofran) Confirm Administered Dose 4 mg .ROUTE .STK-MED ONE Stop: 07/11/20 12:53 Propofol (Diprivan 20 Ml) Confirm Administered Dose 200 mg .ROUTE .STK-MED ONE Stop: 07/11/20 12:53 Sertraline HCl (Zoloft) 50 mg PO ONETIME ONE Stop: 07/10/20 13:49 Last Admin: 07/10/20 14:05 Dose: 50 mg Documented by: - Exam Wound/Incisions: Healing Well, Dressing Dry and Intact - Problem List & Annotations (1) S/P primary low transverse SNOMED Code(s): 524325638, 88115788, 064128615, 668596032, 831371433 Code(s): Z98.891 - HISTORY OF UTERINE SCAR FROM PREVIOUS SURGERY Status: Acute Current Visit: Yes - My Orders Last 24 Hours: My Active Orders 07/11/20 12:27 Patient Status [ADT] Routine Ambulate [RC] PER UNIT ROUTINE Communication Order [RC] PER UNIT ROUTINE Communication Order [RC] PER UNIT ROUTINE Communication Order [RC] Per Unit Routine May Shower [RC] ASDIRECTED Notify Provider Intake and Out [RC] ASDIRECTED Notify Provider Vital Signs [RC] ASDIRECTED RT Incentive Spirometry [RC] Q2HWA Vital Signs [RC] PER UNIT ROUTINE Acetaminophen/oxyCODONE [Percocet 325-5 MG] 1 tab PO Q4H PRN Acetaminophen/oxyCODONE [Percocet 325-5 MG] 2 tab PO Q4H PRN Lanolin [Lansinoh HPA] See Dose Instructions TOP ASDIRECTED PRN Methylergonovine [Methergine] 0.2 mg IM ONETIME PRN Ondansetron [Zofran] 4 mg IVPUSH Q4H PRN Oxytocin [Pitocin] 10 unit IM ASDIRECTED PRN Tranexamic Acid [Cyklokapron] 1,000 mg Sodium Chloride 0.9% [Normal Saline] 100 ml IV ONETIME bisacodyL [Dulcolax] 10 mg RECTAL ONETIME PRN diphenhydrAMINE [Benadryl] 25 mg IVPUSH Q6H PRN miSOPROStoL [Cytotec] 1,000 mcg RECTAL ONETIME PRN Assess Lochia [WOMSER] Per Unit Routine Assess Uterine Involution [WOMSER] Per Unit Routine Breast Pump [WOMSER] Per Unit Routine Peripheral IV Discontinue [OM.PC] Routine Sequential Compression Device [OM.PC] Per Unit Routine Resuscitation Status Routine 07/11/20 12:28 Antiembolic Devices [RC] PER UNIT ROUTINE 07/11/20 12:30 Lactated Ringers [Ringers, Lactated] 1,000 ml IV ASDIRECTED Oxytocin/Lactated Ringers [Pitocin in LR 30 Units/500 ML] 30 unit in 500 ml IV TITRATE 07/11/20 12:35 SCREEN [BBK] Routine RH IMMUNE GLOBULIN [BBK] Routine RHOGAM, [RHIG WORKUP, ] [BBK] Routine 07/11/20 Dinner Fluid Restriction [DIET] 07/11/20 17:15 Lactated Ringers [Ringers, Lactated] 1,000 ml IV ASDIRECTED 07/11/20 18:00 Ketorolac [Toradol] 30 mg IVPUSH Q6H 07/11/20 21:00 Docusate Sodium [Colace] 100 mg PO BID 07/12/20 Breakfast Clear Liquid Diet [DIET] 07/12/20 11:00 MAGNESIUM [CHEM] Q6H 07/12/20 17:00 MAGNESIUM [CHEM] Q6H 07/12/20 18:00 Ibuprofen [Motrin] 800 mg PO Q8H PRN - Assessment Assessment:: Agree - Plan Plan:: Agree with plan D/C magnessium now D/C nohemi Muñoz Regular diet
[2020-07-12] MEDS: Docusate Sodium 100 MG Cap PO SCH ×2 (12:45→23:58)
[2020-07-12] MEDS: Acetaminophen/oxyCODONE 325-5 MG Tab PO PRN (19:31)
[2020-07-12] MEDS: Ibuprofen 800 MG Tab PO PRN (23:57)
[2020-07-13] MEDS: Acetaminophen/oxyCODONE 325-5 MG Tab PO PRN ×4 (03:54→19:44)
[2020-07-13] MEDS ORDERED: Morphine PF 10 MG/10 ML SDV ONE (07:22)
[2020-07-13] MEDS: Docusate Sodium 100 MG Cap PO SCH ×2 (08:24→21:46)
--- NOTE | 2020-07-13 08:31 | PCM.PNPP ---
- General Info Date of Service: 07/13/20 Admission Dx/Problem (Free Text): IOL for preeclampsia with severe features, stat primary low-transverse for bradycardia Subjective Update: D/c mag at 1200 yesterday, BPs stable, patient feeling well, ambulating, took a shower, tolerating diet, urinating, passing flatus but no BM yet, baby at bedside, attempting nursing and going "okay" Functional Status: Reports: Pain Controlled, Tolerating Diet, Ambulating, U rinating Pain Score: 3 - Review of Systems General: Reports: No Symptoms. Denies: Fever, Weakness, Fatigue, Chills HEENT: Reports: No Symptoms Pulmonary: Reports: No Symptoms Cardiovascular: Reports: No Symptoms Gastrointestinal: Reports: No Symptoms Genitourinary: Reports: No Symptoms Musculoskeletal: Reports: No Symptoms Skin: Reports: No Symptoms Neurological: Reports: No Symptoms Psychiatric: Reports: No Symptoms - General Info Date of Service: 07/13/20 - Patient Data Vital Signs - Most Recent: Last Vital Signs Temp 98.4 F 07/13/20 04:00 Pulse 88 07/13/20 04:00 Resp 16 07/13/20 04:00 BP 116/70 07/13/20 04:00 Pulse Ox 95 07/13/20 04:00 Weight - Most Recent: 172 lb I&O - Last 24 Hours: Intake & Output 07/12/20 07/13/20 07/13/20 22:59 06:59 14:59 Output Total 1999 Balance -1999 Med Orders - Current: Current Medications Bisacodyl (Dulcolax) 10 mg RECTAL ONETIME PRN PRN Reason: Constipation Butorphanol Tartrate (Stadol) 1 mg IVPUSH Q1H PRN PRN Reason: Pain Calcium Gluconate (Calcium Gluconate) 1 gm IV ASDIRECTED PRN PRN Reason: respiratory distress Carboprost Tromethamine (Hemabate Ds) 250 mcg IM ASDIRECTED PRN PRN Reason: Post Hemorrhage Diphenhydramine HCl (Benadryl) 25 mg IVPUSH Q6H PRN PRN Reason: Itching or Nausea Docusate Sodium (Colace) 100 mg PO BID MARYBEL Last Admin: 07/13/20 08:24 Dose: 100 mg Documented by: Emollient Ointment (Lansinoh Hpa) 0 gm TOP ASDIRECTED PRN PRN Reason: Sore Nipples Last Admin: 07/11/20 21:18 Dose: 7 gm Documented by: Lactated Ringer's (Ringers, Lactated) 1,000 mls @ 150 mls/hr IV ASDIRECTED MARYBEL Last Admin: 07/10/20 14:20 Dose: 150 mls/hr Documented by: Oxytocin/Sodium Chloride (Oxytocin 30 Unit/500 Ml-Ns) 30 unit in 500 mls @ 500 mls/hr IV TITRATE MARYBEL Tranexamic Acid 1,000 mg/ (Sodium Chloride) 110 mls @ 660 mls/hr IV ONETIME PRN PRN Reason: Bleeding Oxytocin/Sodium Chloride (Oxytocin 30 Unit/500 Ml-Ns) 30 unit in 500 mls @ 2 mls/hr IV TITRATE [facility]; Protocol Magnesium Sulfate (Magnesium Sulfate In Water Premix) 20 gm in 500 mls @ 50 mls/hr IV ASDIRECTED MARYBEL Last Admin: 07/12/20 04:53 Dose: 2 gm/hr, 50 mls/hr Documented by: Sodium Chloride (Normal Saline) 1,000 mls @ 5 mls/hr IV ASDIRECTED MARYBEL Last Admin: 07/11/20 14:45 Dose: 5 mls/hr Documented by: Lactated Ringer's (Ringers, Lactated) 1,000 mls @ 125 mls/hr IV ASDIRECTED [facility] Last Infusion: 07/11/20 17:03 Dose: 30 mls/hr Documented by: Oxytocin/Lactated Ringer's (Pitocin In Lr 30 Units/500 Ml) 30 unit in 500 mls @ 125 mls/hr IV TITRATE [facility]; Protocol Tranexamic Acid 1,000 mg/ (Sodium Chloride) 110 mls @ 660 mls/hr IV ONETIME PRN PRN Reason: Bleeding Lactated Ringer's (Ringers, Lactated) 1,000 mls @ 30 mls/hr IV ASDIRECTED [facility] Ibuprofen (Motrin) 800 mg PO Q8H PRN PRN Reason: mild pain or fever Last Admin: 07/12/20 23:57 Dose: 800 mg Documented by: Lidocaine HCl (Xylocaine 1%) 50 ml INJECT ONETIME PRN PRN Reason: Laceration repair Methylergonovine Maleate (Methergine) 0.2 mg IM ASDIRECTED PRN PRN Reason: Post Hemorrhage Methylergonovine Maleate (Methergine) 0.2 mg IM ONETIME PRN PRN Reason: Excessive Vaginal Bleeding Misoprostol (Cytotec) 200 mcg PO ONETIME PRN PRN Reason: Post Hemorrhage Misoprostol (Cytotec) 25 mcg VAG ONETIME PRN PRN Reason: Cervical Ripening Last Admin: 07/10/20 15:50 Dose: 25 mcg Documented by: Misoprostol (Cytotec) 25 mcg VAG Q4H PRN PRN Reason: Cervical Ripening Last Admin: 07/11/20 06:31 Dose: 25 mcg Documented by: Misoprostol (Cytotec) 1,000 mcg RECTAL ONETIME PRN PRN Reason: excessive bleeding Nalbuphine HCl (Nubain) 10 mg IVPUSH Q1H PRN PRN Reason: Pain (severe 7-10) Ondansetron HCl (Zofran) 4 mg IVPUSH Q4H PRN PRN Reason: Nausea/Vomiting Last Admin: 07/11/20 17:24 Dose: 4 mg Documented by: Ondansetron HCl (Zofran) 4 mg IVPUSH Q4H PRN PRN Reason: Nausea/Vomiting Oxycodone/Acetaminophen (Percocet 325-5 Mg) 1 tab PO Q4H PRN PRN Reason: Pain (moderate 4-6) Oxycodone/Acetaminophen (Percocet 325-5 Mg) 2 tab PO Q4H PRN PRN Reason: Pain (moderate 4-6) Last Admin: 07/13/20 08:24 Dose: 2 tab Documented by: Oxytocin (Pitocin) 10 unit IM ASDIRECTED PRN PRN Reason: Excessive Vaginal Bleeding Sodium Chloride (Saline Flush) 10 ml FLUSH ASDIRECTED PRN PRN Reason: Keep Vein Open Sodium Chloride (Saline Flush) 2.5 ml FLUSH ASDIRECTED PRN PRN Reason: Keep Vein Open Sodium Chloride (Normal Saline) 10 ml IV ASDIRECTED PRN PRN Reason: IV Use Sodium Chloride (Saline Flush) 10 ml FLUSH ASDIRECTED PRN PRN Reason: Keep Vein Open Sodium Chloride (Saline Flush) 2.5 ml FLUSH ASDIRECTED PRN PRN Reason: Keep Vein Open Sodium Chloride (Normal Saline) 10 ml IV ASDIRECTED PRN PRN Reason: IV Use Sterile Water (Sterile Water For Irrigation) 1,000 ml IRR ASDIRECTED PRN PRN Reason: delivery Terbutaline Sulfate (Brethine) 0.25 mg SUBCUT ASDIRECTED PRN PRN Reason: Tacysystole Discontinued Medications Acetaminophen (Tylenol Extra Strength) 1,000 mg PO NOW ONE Stop: 07/10/20 18:02 Last Admin: 07/10/20 18:16 Dose: 1,000 mg Documented by: Acetaminophen (Tylenol Extra Strength) Confirm Administered Dose 1,000 mg .ROUTE .STK-MED ONE Stop: 07/10/20 18:12 Acetaminophen (Tylenol Extra Strength) 500 mg PO ONETIME ONE Stop: 07/10/20 22:36 Last Admin: 07/10/20 22:52 Dose: 500 mg Documented by: Acetaminophen (Tylenol Extra Strength) 500 mg PO ONETIME ONE Stop: 07/11/20 06:54 Last Admin: 07/11/20 07:56 Dose: 500 mg Documented by: Cefazolin Sodium (Ancef) Confirm Administered Dose 2 gm .ROUTE .STK-MED ONE Stop: 07/11/20 12:53 Fentanyl (Sublimaze) Confirm Administered Dose 100 mcg .ROUTE .STK-MED ONE Stop: 07/11/20 10:21 Last Admin: 07/11/20 21:03 Dose: Not Given Documented by: Magnesium Sulfate 4 gm/ Premix 100 mls @ 300 mls/hr IV BOLUS ONE Stop: 07/10/20 13:46 Last Admin: 07/10/20 15:17 Dose: 300 mls/hr Documented by: Ropivacaine (Naropin 0.2%) Confirm Administered Dose 100 mls @ as directed .ROUTE .STK-MED ONE Stop: 07/11/20 10:21 Last Admin: 07/11/20 21:03 Dose: Not Given Documented by: Ampicillin Sodium/Sulbactam (Sodium 3 gm/ Sodium Chloride) 100 mls @ 200 mls/hr IV Q6H [facility] Stop: 07/12/20 00:29 Ampicillin Sodium/Sulbactam (Sodium 3 gm/ Sodium Chloride) 100 mls @ 200 mls/hr IV Q6H MARYBEL Stop: 07/12/20 00:59 Last Admin: 07/12/20 00:36 Dose: 200 mls/hr Documented by: Ibuprofen (Motrin) 800 mg PO Q8H PRN PRN Reason: mild pain or fever Ketorolac Tromethamine (Toradol) 30 mg IVPUSH Q6H [facility] Stop: 07/12/20 12:31 Ketorolac Tromethamine (Toradol) 30 mg IVPUSH Q6H [facility] Stop: 07/12/20 18:01 Last Admin: 07/12/20 17:43 Dose: Not Given Documented by: Lidocaine/Epinephrine (Xylocaine 2% With Epinephrine 1:100,000) 20 ml .XX .STK- MED ONE Stop: 07/11/20 10:52 Metoclopramide HCl (Reglan) 10 mg IVPUSH ONETIME ONE Stop: 07/10/20 22:35 Last Admin: 07/10/20 22:51 Dose: 10 mg Documented by: Metoclopramide HCl (Reglan) 10 mg IVPUSH ONETIME ONE Stop: 07/11/20 06:53 Last Admin: 07/11/20 07:57 Dose: 10 mg Documented by: Morphine Sulfate (Duramorph Pf) Confirm Administered Dose 10 mg .ROUTE .STK-MED ONE Stop: 07/11/20 12:53 Morphine Sulfate (Duramorph Pf) Confirm Administered Dose 10 mg .ROUTE .STK-MED ONE Stop: 07/13/20 07:23 Ondansetron HCl (Zofran) Confirm Administered Dose 4 mg .ROUTE .STK-MED ONE Stop: 07/11/20 12:53 Ondansetron HCl (Zofran) Confirm Administered Dose 4 mg .ROUTE .STK-MED ONE Stop: 07/11/20 12:53 Propofol (Diprivan 20 Ml) Confirm Administered Dose 200 mg .ROUTE .STK-MED ONE Stop: 07/11/20 12:53 Sertraline HCl (Zoloft) 50 mg PO ONETIME ONE Stop: 07/10/20 13:49 Last Admin: 07/10/20 14:05 Dose: 50 mg Documented by: - Interaction Disposition, : at Bedside Interaction: Holding Infant Feeding: Attempted ; Nursed Fair/Poor Support Person: - Recovery Exam Fundal Tone: Firm Fundal Level: At Umbilicus Fundal Placement: Midline Lochia Amount: Scant Lochia Color: Rubra/Red Perineum Description: Intact, Minimal Bruising/Swelling Episiotomy/Laceration: None Bladder Status: Voiding Urinary Elimination: Not Voiding - Exam General: Alert, Oriented, Cooperative, No Acute Distress HEENT: Pupils Equal, Pupils Reactive, EOMI, Mucous Membr. Moist/[place] Neck: Supple, Trachea Midline, No JVD Lungs: Clear to Auscultation, Normal Respiratory Effort Cardiovascular: Regular Rate, Regular Rhythm, No Murmurs GI/Abdominal Exam: Normal Bowel Sounds, Soft, No Organomegaly, No Distention, Tender (Tenderness to palpation at fundus, increased tenderness in LLQ, some in RLQ) Extremities: Normal Inspection, Normal Range of Motion, Non-Tender, No Pedal Edema, Normal Capillary Refill Skin: Warm, Dry, Intact Wound/Incisions: Healing Well, No Drainage Neurological: No New Focal Deficit, Normal Speech, Strength Equal Bilateral, Reflexes Equal Bilateral Psy/Mental Status: Alert, Normal Affect, Normal Mood - Problem List & Annotations (1) Preeclampsia SNOMED Code(s): 057823377 Code(s): O14.90 - UNSPECIFIED PRE-ECLAMPSIA, UNSPECIFIED TRIMESTER Status: Acute Current Visit: Yes (2) S/P primary low transverse SNOMED Code(s): 159870712, 24224854, 464872429, 604893491, 781327044 Code(s): Z98.891 - HISTORY OF UTERINE SCAR FROM PREVIOUS SURGERY Status: Acute Current Visit: Yes - Problem List Review Problem List Initiated/Reviewed/Updated: Yes - Assessment Assessment:: 35 yo POD2 s/p stat primary low-transverse due to bradycardia, admitted for IOL due to severe preeclampsia, magnesium d/c'd, BPs stable, ambulating, progressing well - Plan Plan:: 1. Routine postoperative and cares 2. GBS negative 3. Rubella immune 4. A negative, ab negative, - Rhogam given at 28 weeks and post- 5. Hx of preeclampsia with previous 6. Sjogren's syndrome 7. Magnesium d/c'd at 1200 yesterday, observe for 24hrs, BPs stable 8. Diet as tolerated 9. Urinating 10. PRN Tylenol and Motrin 11. VSD, at bedside, follow-up echo after discharge 12. Discharge home today, instructions given at bedside 13. Pelvic rest x4 weeks 14. Follow up at 2 and 6 weeks 15. Call or return if develop fever/chills, increasing abdominal pain or bleeding that is more than 1 pad every hour
--- NOTE | 2020-07-13 09:39 | OR ---
SURGEON: FRANCE Henderson MS DATE OF PROCEDURE: 07/11/2020 PREOPERATIVE DIAGNOSES: 35yo G3, P1-0-1-1, at 37w2d bradycardia. Severe preeclampsia. GBS-negative. Rh-negative. Sjorgen syndrome POSTOPERATIVE DIAGNOSES: 35yo G3, P1-0-1-1, at 37w2d bradycardia. Severe preeclampsia. GBS-negative. Rh-negative. PROCEDURE IN DETAIL: Primary low segment transverse section.- STAT ANAESTHESIA Epidural IV FLUID: 1800. URINE OUTPUT: 50. EBL: 600. NOTES AND FINDINGS: A live female , delivered at 10:58. score was 6 and 8. Weight is 2810 g. Decision to Delivery of baby was 8mins BRIEF HISTORY ABOUT THE PATIENT: She is a 35-year-old, G3, P1-0-1-1, 37 weeks and 2 days, previous history of Sjogren's syndrome, fetus with VSD also, who was admitted for labor induction secondary to elevated blood pressure and positive protein-creatinine ratio, and she had platelets in the 110 and severe headaches. As a result of this, she was admitted for labor induction due to diagnosis of severe preeclampsia. Induction of labor was started with Cytotec.After Cytotec, the patient had AROM with clear fluid noted. The patient was having pain, so she requested epidural. When she had epidural, shortly after she was noted to have a deceleration to the 60. Intrauterine resuscitation was attempted with no recovery of FHR . Her blood pressure at this time was 60s/30s, but normalized to 120s/70s , but the FHR did not improve , so a stat was called. The patient was wheeled immediately to operative suite and Betadine was put on the abdomen. DESCRIPTION OF PROCEDURE: A Pfannenstiel incision was made with a scalpel, carried down to the fascia with the scalpel. The fascia was incised and extended laterally. The rectus muscle was in the midline down to the level of pubic symphysis. The abdomen was entered in bluntly. The bladder blade was placed, and the lower uterine incision was made. The fetus was in cephalic position. With fundal pressure, the fetus was delivered. The cord was clamped and cut and handed over to the awaiting nursery nurse and watershed coordinator. The placenta was then delivered by manual massage of the uterine fundus. The abdomen was then cleaned with moist laparotomy sponges. Hysterotomy incision was repaired in 2 layers, first layer with 0 Vicryl, second layer was with 0 Monocryl. Then, the x-ray was done to confirm there was no lap in the abdomen, which was confirmed, and after which, the peritoneum was then closed with 2-0 Vicryl and the fascia was closed with 0 Vicryl and the skin was closed with 3-0 Monocryl on a Mat needle. All instrument and pad counts were correct x2. The patient was taken to the recovery room in stable condition, and the procedure was explained in detail to her , and she was explained everything in detail after pain is controlled and she is stable. The patient tolerated the procedure well. ALESSANDRA HAINES /[id number] MTDD
[2020-07-13] MEDS: Ibuprofen 800 MG Tab PO PRN (15:57)
[2020-07-14] MEDS: Ibuprofen 800 MG Tab PO PRN ×2 (00:01→09:07)
[2020-07-14] MEDS: Acetaminophen/oxyCODONE 325-5 MG Tab PO PRN ×3 (00:02→09:08)
--- NOTE | 2020-07-14 08:08 | PCM.PNPP ---
<Ariana Henderson Carli - Last Filed: 07/14/20 08:02> - General Info Date of Service: 07/14/20 Admission Dx/Problem (Free Text): IOL for preeclampsia with severe features, stat primary low-transverse for bradycardia Subjective Update: BPs stable (112/64 this am), patient feeling well and pain controlled, ambulating, tolerating diet, urinating, passing flatus, baby in nursery due to elevated bilirubin, recheck this am, baby to room to nurse, nursing going well Functional Status: Reports: Pain Controlled, Tolerating Diet, Ambulating, Urinating Pain Score: 2 - Review of Systems General: Reports: No Symptoms. Denies: Fever, Malaise, Chills HEENT: Reports: No Symptoms Pulmonary: Reports: No Symptoms Cardiovascular: Reports: No Symptoms Gastrointestinal: Reports: No Symptoms Genitourinary: Reports: No Symptoms Musculoskeletal: Reports: No Symptoms Skin: Reports: No Symptoms Neurological: Reports: No Symptoms Psychiatric: Reports: No Symptoms - General Info Date of Service: 07/14/20 - Patient Data Vital Signs - Most Recent: Last Vital Signs Temp 97.7 F 07/14/20 04:00 Pulse 58 L 07/14/20 04:00 Resp 16 07/14/20 04:00 BP 112/64 07/14/20 04:00 Pulse Ox 95 07/14/20 04:00 Weight - Most Recent: 78.018 kg I&O - Last 24 Hours: Intake & Output 07/13/20 07/14/20 07/14/20 22:59 06:59 14:59 Intake Total 2 Balance 2 Lab Results - Last 24 Hours: Laboratory Results - last 24 hr 07/11/20 Range/Units 12:35 Screen NEGATIVE (NEGATIVE) RhIG Candidate? YES Rhogam Indicated YES, BABY RH POS H Med Orders - Current: Current Medications Bisacodyl (Dulcolax) 10 mg RECTAL ONETIME PRN PRN Reason: Constipation Butorphanol Tartrate (Stadol) 1 mg IVPUSH Q1H PRN PRN Reason: Pain Calcium Gluconate (Calcium Gluconate) 1 gm IV ASDIRECTED PRN PRN Reason: respiratory distress Carboprost Tromethamine (Hemabate Ds) 250 mcg IM ASDIRECTED PRN PRN Reason: Post Hemorrhage Diphenhydramine HCl (Benadryl) 25 mg IVPUSH Q6H PRN PRN Reason: Itching or Nausea Docusate Sodium (Colace) 100 mg PO BID [facility] Last Admin: 07/13/20 21:46 Dose: 100 mg Documented by: Emollient Ointment (Lansinoh Hpa) 0 gm TOP ASDIRECTED PRN PRN Reason: Sore Nipples Last Admin: 07/11/20 21:18 Dose: 7 gm Documented by: Lactated Ringer's (Ringers, Lactated) 1,000 mls @ 150 mls/hr IV ASDIRECTED [facility] Last Admin: 07/10/20 14:20 Dose: 150 mls/hr Documented by: Oxytocin/Sodium Chloride (Oxytocin 30 Unit/500 Ml-Ns) 30 unit in 500 mls @ 500 mls/hr IV TITRATE [facility] Tranexamic Acid 1,000 mg/ (Sodium Chloride) 110 mls @ 660 mls/hr IV ONETIME PRN PRN Reason: Bleeding Oxytocin/Sodium Chloride (Oxytocin 30 Unit/500 Ml-Ns) 30 unit in 500 mls @ 2 mls/hr IV TITRATE [facility]; Protocol Magnesium Sulfate (Magnesium Sulfate In Water Premix) 20 gm in 500 mls @ 50 mls/hr IV ASDIRECTED [facility] Last Admin: 07/12/20 04:53 Dose: 2 gm/hr, 50 mls/hr Documented by: Sodium Chloride (Normal Saline) 1,000 mls @ 5 mls/hr IV ASDIRECTED [facility] Last Admin: 07/11/20 14:45 Dose: 5 mls/hr Documented by: Lactated Ringer's (Ringers, Lactated) 1,000 mls @ 125 mls/hr IV ASDIRECTED [facility] Last Infusion: 07/11/20 17:03 Dose: 30 mls/hr Documented by: Oxytocin/Lactated Ringer's (Pitocin In Lr 30 Units/500 Ml) 30 unit in 500 mls @ 125 mls/hr IV TITRATE [facility]; Protocol Tranexamic Acid 1,000 mg/ (Sodium Chloride) 110 mls @ 660 mls/hr IV ONETIME PRN PRN Reason: Bleeding Lactated Ringer's (Ringers, Lactated) 1,000 mls @ 30 mls/hr IV ASDIRECTED [facility] Ibuprofen (Motrin) 800 mg PO Q8H PRN PRN Reason: mild pain or fever Last Admin: 07/14/20 00:01 Dose: 800 mg Documented by: Lidocaine HCl (Xylocaine 1%) 50 ml INJECT ONETIME PRN PRN Reason: Laceration repair Methylergonovine Maleate (Methergine) 0.2 mg IM ASDIRECTED PRN PRN Reason: Post Hemorrhage Methylergonovine Maleate (Methergine) 0.2 mg IM ONETIME PRN PRN Reason: Excessive Vaginal Bleeding Misoprostol (Cytotec) 200 mcg PO ONETIME PRN PRN Reason: Post Hemorrhage Misoprostol (Cytotec) 25 mcg VAG ONETIME PRN PRN Reason: Cervical Ripening Last Admin: 07/10/20 15:50 Dose: 25 mcg Documented by: Misoprostol (Cytotec) 25 mcg VAG Q4H PRN PRN Reason: Cervical Ripening Last Admin: 07/11/20 06:31 Dose: 25 mcg Documented by: Misoprostol (Cytotec) 1,000 mcg RECTAL ONETIME PRN PRN Reason: excessive bleeding Nalbuphine HCl (Nubain) 10 mg IVPUSH Q1H PRN PRN Reason: Pain (severe 7-10) Ondansetron HCl (Zofran) 4 mg IVPUSH Q4H PRN PRN Reason: Nausea/Vomiting Last Admin: 07/11/20 17:24 Dose: 4 mg Documented by: Ondansetron HCl (Zofran) 4 mg IVPUSH Q4H PRN PRN Reason: Nausea/Vomiting Oxycodone/Acetaminophen (Percocet 325-5 Mg) 1 tab PO Q4H PRN PRN Reason: Pain (moderate 4-6) Last Admin: 07/14/20 00:02 Dose: 1 tab Documented by: Oxycodone/Acetaminophen (Percocet 325-5 Mg) 2 tab PO Q4H PRN PRN Reason: Pain (moderate 4-6) Last Admin: 07/14/20 04:07 Dose: 2 tab Documented by: Oxytocin (Pitocin) 10 unit IM ASDIRECTED PRN PRN Reason: Excessive Vaginal Bleeding Sodium Chloride (Saline Flush) 10 ml FLUSH ASDIRECTED PRN PRN Reason: Keep Vein Open Sodium Chloride (Saline Flush) 2.5 ml FLUSH ASDIRECTED PRN PRN Reason: Keep Vein Open Sodium Chloride (Normal Saline) 10 ml IV ASDIRECTED PRN PRN Reason: IV Use Sodium Chloride (Saline Flush) 10 ml FLUSH ASDIRECTED PRN PRN Reason: Keep Vein Open Sodium Chloride (Saline Flush) 2.5 ml FLUSH ASDIRECTED PRN PRN Reason: Keep Vein Open Sodium Chloride (Normal Saline) 10 ml IV ASDIRECTED PRN PRN Reason: IV Use Sterile Water (Sterile Water For Irrigation) 1,000 ml IRR ASDIRECTED PRN PRN Reason: delivery Terbutaline Sulfate (Brethine) 0.25 mg SUBCUT ASDIRECTED PRN PRN Reason: Tacysystole Discontinued Medications Acetaminophen (Tylenol Extra Strength) 1,000 mg PO NOW ONE Stop: 07/10/20 18:02 Last Admin: 07/10/20 18:16 Dose: 1,000 mg Documented by: Acetaminophen (Tylenol Extra Strength) Confirm Administered Dose 1,000 mg .ROUTE .STK-MED ONE Stop: 07/10/20 18:12 Acetaminophen (Tylenol Extra Strength) 500 mg PO ONETIME ONE Stop: 07/10/20 22:36 Last Admin: 07/10/20 22:52 Dose: 500 mg Documented by: Acetaminophen (Tylenol Extra Strength) 500 mg PO ONETIME ONE Stop: 07/11/20 06:54 Last Admin: 07/11/20 07:56 Dose: 500 mg Documented by: Cefazolin Sodium (Ancef) Confirm Administered Dose 2 gm .ROUTE .STK-MED ONE Stop: 07/11/20 12:53 Fentanyl (Sublimaze) Confirm Administered Dose 100 mcg .ROUTE .STK-MED ONE Stop: 07/11/20 10:21 Last Admin: 07/11/20 21:03 Dose: Not Given Documented by: Magnesium Sulfate 4 gm/ Premix 100 mls @ 300 mls/hr IV BOLUS ONE Stop: 07/10/20 13:46 Last Admin: 07/10/20 15:17 Dose: 300 mls/hr Documented by: Ropivacaine (Naropin 0.2%) Confirm Administered Dose 100 mls @ as directed . ROUTE .STK-MED ONE Stop: 07/11/20 10:21 Last Admin: 07/11/20 21:03 Dose: Not Given Documented by: Ampicillin Sodium/Sulbactam (Sodium 3 gm/ Sodium Chloride) 100 mls @ 200 mls/hr IV Q6H [facility] Stop: 07/12/20 00:29 Ampicillin Sodium/Sulbactam (Sodium 3 gm/ Sodium Chloride) 100 mls @ 200 mls/hr IV Q6H [facility] Stop: 07/12/20 00:59 Last Admin: 07/12/20 00:36 Dose: 200 mls/hr Documented by: Ibuprofen (Motrin) 800 mg PO Q8H PRN PRN Reason: mild pain or fever Ketorolac Tromethamine (Toradol) 30 mg IVPUSH Q6H [facility] Stop: 07/12/20 12:31 Ketorolac Tromethamine (Toradol) 30 mg IVPUSH Q6H [facility] Stop: 07/12/20 18:01 Last Admin: 07/12/20 17:43 Dose: Not Given Documented by: Lidocaine/Epinephrine (Xylocaine 2% With Epinephrine 1:100,000) 20 ml .XX .STK- MED ONE Stop: 07/11/20 10:52 Metoclopramide HCl (Reglan) 10 mg IVPUSH ONETIME ONE Stop: 07/10/20 22:35 Last Admin: 07/10/20 22:51 Dose: 10 mg Documented by: Metoclopramide HCl (Reglan) 10 mg IVPUSH ONETIME ONE Stop: 07/11/20 06:53 Last Admin: 07/11/20 07:57 Dose: 10 mg Documented by: Morphine Sulfate (Duramorph Pf) Confirm Administered Dose 10 mg .ROUTE .STK-MED ONE Stop: 07/11/20 12:53 Morphine Sulfate (Duramorph Pf) Confirm Administered Dose 10 mg .ROUTE .STK-MED ONE Stop: 07/13/20 07:23 Ondansetron HCl (Zofran) Confirm Administered Dose 4 mg .ROUTE .STK-MED ONE Stop: 07/11/20 12:53 Ondansetron HCl (Zofran) Confirm Administered Dose 4 mg .ROUTE .STK-MED ONE Stop: 07/11/20 12:53 Propofol (Diprivan 20 Ml) Confirm Administered Dose 200 mg .ROUTE .STK-MED ONE Stop: 07/11/20 12:53 Sertraline HCl (Zoloft) 50 mg PO ONETIME ONE Stop: 07/10/20 13:49 Last Admin: 07/10/20 14:05 Dose: 50 mg Documented by: - Infant Interaction Disposition, : to Nursery (Elevated bilirubin) Infant Interaction: Holding Infant Feeding: Breastfed Infant; Nursed Well Support Person: - Recovery Exam Fundal Tone: Firm Fundal Level: 2 Fingerbreadths Below Umbilicus Fundal Placement: Midline Lochia Amount: Scant Lochia Color: Rubra/Red Perineum Description: Intact, Minimal Bruising/Swelling Episiotomy/Laceration: None Bladder Status: Voiding Urinary Elimination: Voided - Exam General: Alert, Oriented HEENT: Pupils Equal, Pupils Reactive, EOMI, Mucous Membr. Moist/[place] Neck: Supple, Trachea Midline, No JVD Lungs: Clear to Auscultation, Normal Respiratory Effort. No: Crackles, Wheezing Cardiovascular: Regular Rate, Regular Rhythm, No Murmurs GI/Abdominal Exam: Normal Bowel Sounds, Soft, Non-Tender (Fundal tenderness has significantly improved since yesterday), No Organomegaly, No Distention, No Mass Extremities: Normal Inspection, Normal Range of Motion, Non-Tender, No Pedal Edema Skin: Warm, Dry, Intact Wound/Incisions: Healing Well, Dressing Dry and Intact, No Drainage Neurological: No New Focal Deficit Psy/Mental Status: Alert, Normal Affect, Normal Mood - Problem List & Annotations (1) Preeclampsia SNOMED Code(s): 561540410 Code(s): O14.90 - UNSPECIFIED PRE-ECLAMPSIA, UNSPECIFIED TRIMESTER Status: Acute Current Visit: Yes (2) S/P primary low transverse SNOMED Code(s): 487668974, 43982213, 412275786, 887893943, 593139075 Code(s): Z98.891 - HISTORY OF UTERINE SCAR FROM PREVIOUS SURGERY Status: Acute Current Visit: Yes - Problem List Review Problem List Initiated/Reviewed/Updated: Yes - Assessment Assessment:: 35 yo POD3 s/p stat primary low-transverse due to bradycardia, admitted for IOL due to severe preeclampsia, BPs stable, ambulating, nursing well, progressing well, infant in nursery due to elevated bilirubin, recheck this am - Plan Plan:: 1. Routine postoperative and cares 2. GBS negative 3. Rubella immune 4. A negative, ab negative, - Rhogam given at 28 weeks and post- 5. Hx of preeclampsia with previous 6. Sjogren's syndrome 7. s/p mag >24 hours, BPs stable 8. Diet as tolerated 9. Urinating 10. PRN Tylenol and Motrin 11. VSD, follow-up echo after discharge 12. Discharge home today, instructions given at bedside 13. Pelvic rest x4 weeks 14. Follow up at 2 and 6 weeks 15. Call or return if develop fever/chills, increasing abdominal pain or bleeding that is more than 1 pad every hour 16. Infant to nursery for elevated bilirubin, recheck at 0800 this am 17. to room to nurse, nursing well <Willi Downs - Last Filed: 07/14/20 10:38> - Patient Data Vital Signs - Most Recent: Last Vital Signs Temp 36.4 C 07/14/20 08:55 Pulse 100 07/14/20 08:55 Resp 16 07/14/20 08:55 BP 123/82 07/14/20 08:55 Pulse Ox 97 07/14/20 08:55 I&O - Last 24 Hours: Intake & Output 07/13/20 07/14/20 07/14/20 22:59 06:59 14:59 Intake Total 2 Balance 2 Lab Results - Last 24 Hours: Laboratory Results - last 24 hr 07/11/20 Range/Units 12:35 Screen NEGATIVE (NEGATIVE) RhIG Candidate? YES Rhogam Indicated YES, BABY RH POS H Med Orders - Current: Current Medications Bisacodyl (Dulcolax) 10 mg RECTAL ONETIME PRN PRN Reason: Constipation Butorphanol Tartrate (Stadol) 1 mg IVPUSH Q1H PRN PRN Reason: Pain Calcium Gluconate (Calcium Gluconate) 1 gm IV ASDIRECTED PRN PRN Reason: respiratory distress Carboprost Tromethamine (Hemabate Ds) 250 mcg IM ASDIRECTED PRN PRN Reason: Post Hemorrhage Diphenhydramine HCl (Benadryl) 25 mg IVPUSH Q6H PRN PRN Reason: Itching or Nausea Docusate Sodium (Colace) 100 mg PO BID [facility] Last Admin: 07/14/20 09:07 Dose: 100 mg Documented by: Emollient Ointment (Lansinoh Hpa) 0 gm TOP ASDIRECTED PRN PRN Reason: Sore Nipples Last Admin: 07/11/20 21:18 Dose: 7 gm Documented by: Lactated Ringer's (Ringers, Lactated) 1,000 mls @ 150 mls/hr IV ASDIRECTED [facility] Last Admin: 07/10/20 14:20 Dose: 150 mls/hr Documented by: Oxytocin/Sodium Chloride (Oxytocin 30 Unit/500 Ml-Ns) 30 unit in 500 mls @ 500 mls/hr IV TITRATE [facility] Tranexamic Acid 1,000 mg/ (Sodium Chloride) 110 mls @ 660 mls/hr IV ONETIME PRN PRN Reason: Bleeding Oxytocin/Sodium Chloride (Oxytocin 30 Unit/500 Ml-Ns) 30 unit in 500 mls @ 2 mls/hr IV TITRATE [facility]; Protocol Magnesium Sulfate (Magnesium Sulfate In Water Premix) 20 gm in 500 mls @ 50 mls/hr IV ASDIRECTED [facility] Last Admin: 07/12/20 04:53 Dose: 2 gm/hr, 50 mls/hr Documented by: Sodium Chloride (Normal Saline) 1,000 mls @ 5 mls/hr IV ASDIRECTED [facility] Last Admin: 07/11/20 14:45 Dose: 5 mls/hr Documented by: Lactated Ringer's (Ringers, Lactated) 1,000 mls @ 125 mls/hr IV ASDIRECTED [facility] Last Infusion: 07/11/20 17:03 Dose: 30 mls/hr Documented by: Oxytocin/Lactated Ringer's (Pitocin In Lr 30 Units/500 Ml) 30 unit in 500 mls @ 125 mls/hr IV TITRATE [facility]; Protocol Tranexamic Acid 1,000 mg/ (Sodium Chloride) 110 mls @ 660 mls/hr IV ONETIME PRN PRN Reason: Bleeding Lactated Ringer's (Ringers, Lactated) 1,000 mls @ 30 mls/hr IV ASDIRECTED [facility] Ibuprofen (Motrin) 800 mg PO Q8H PRN PRN Reason: mild pain or fever Last Admin: 07/14/20 09:07 Dose: 800 mg Documented by: Lidocaine HCl (Xylocaine 1%) 50 ml INJECT ONETIME PRN PRN Reason: Laceration repair Methylergonovine Maleate (Methergine) 0.2 mg IM ASDIRECTED PRN PRN Reason: Post Hemorrhage Methylergonovine Maleate (Methergine) 0.2 mg IM ONETIME PRN PRN Reason: Excessive Vaginal Bleeding Misoprostol (Cytotec) 200 mcg PO ONETIME PRN PRN Reason: Post Hemorrhage Misoprostol (Cytotec) 25 mcg VAG ONETIME PRN PRN Reason: Cervical Ripening Last Admin: 07/10/20 15:50 Dose: 25 mcg Documented by: Misoprostol (Cytotec) 25 mcg VAG Q4H PRN PRN Reason: Cervical Ripening Last Admin: 07/11/20 06:31 Dose: 25 mcg Documented by: Misoprostol (Cytotec) 1,000 mcg RECTAL ONETIME PRN PRN Reason: excessive bleeding Nalbuphine HCl (Nubain) 10 mg IVPUSH Q1H PRN PRN Reason: Pain (severe 7-10) Ondansetron HCl (Zofran) 4 mg IVPUSH Q4H PRN PRN Reason: Nausea/Vomiting Last Admin: 07/11/20 17:24 Dose: 4 mg Documented by: Ondansetron HCl (Zofran) 4 mg IVPUSH Q4H PRN PRN Reason: Nausea/Vomiting Oxycodone/Acetaminophen (Percocet 325-5 Mg) 1 tab PO Q4H PRN PRN Reason: Pain (moderate 4-6) Last Admin: 07/14/20 09:08 Dose: 1 tab Documented by: Oxycodone/Acetaminophen (Percocet 325-5 Mg) 2 tab PO Q4H PRN PRN Reason: Pain (moderate 4-6) Last Admin: 07/14/20 04:07 Dose: 2 tab Documented by: Oxytocin (Pitocin) 10 unit IM ASDIRECTED PRN PRN Reason: Excessive Vaginal Bleeding Sodium Chloride (Saline Flush) 10 ml FLUSH ASDIRECTED PRN PRN Reason: Keep Vein Open Sodium Chloride (Saline Flush) 2.5 ml FLUSH ASDIRECTED PRN PRN Reason: Keep Vein Open Sodium Chloride (Normal Saline) 10 ml IV ASDIRECTED PRN PRN Reason: IV Use Sodium Chloride (Saline Flush) 10 ml FLUSH ASDIRECTED PRN PRN Reason: Keep Vein Open Sodium Chloride (Saline Flush) 2.5 ml FLUSH ASDIRECTED PRN PRN Reason: Keep Vein Open Sodium Chloride (Normal Saline) 10 ml IV ASDIRECTED PRN PRN Reason: IV Use Sterile Water (Sterile Water For Irrigation) 1,000 ml IRR ASDIRECTED PRN PRN Reason: delivery Terbutaline Sulfate (Brethine) 0.25 mg SUBCUT ASDIRECTED PRN PRN Reason: Tacysystole Discontinued Medications Acetaminophen (Tylenol Extra Strength) 1,000 mg PO NOW ONE Stop: 07/10/20 18:02 Last Admin: 07/10/20 18:16 Dose: 1,000 mg Documented by: Acetaminophen (Tylenol Extra Strength) Confirm Administered Dose 1,000 mg .ROUTE .STK-MED ONE Stop: 07/10/20 18:12 Acetaminophen (Tylenol Extra Strength) 500 mg PO ONETIME ONE Stop: 07/10/20 22:36 Last Admin: 07/10/20 22:52 Dose: 500 mg Documented by: Acetaminophen (Tylenol Extra Strength) 500 mg PO ONETIME ONE Stop: 07/11/20 06:54 Last Admin: 07/11/20 07:56 Dose: 500 mg Documented by: Cefazolin Sodium (Ancef) Confirm Administered Dose 2 gm .ROUTE .STK-MED ONE Stop: 07/11/20 12:53 Fentanyl (Sublimaze) Confirm Administered Dose 100 mcg .ROUTE .STK-MED ONE Stop: 07/11/20 10:21 Last Admin: 07/11/20 21:03 Dose: Not Given Documented by: Magnesium Sulfate 4 gm/ Premix 100 mls @ 300 mls/hr IV BOLUS ONE Stop: 07/10/20 13:46 Last Admin: 07/10/20 15:17 Dose: 300 mls/hr Documented by: Ropivacaine (Naropin 0.2%) Confirm Administered Dose 100 mls @ as directed .ROUTE .STK-MED ONE Stop: 07/11/20 10:21 Last Admin: 07/11/20 21:03 Dose: Not Given Documented by: Ampicillin Sodium/Sulbactam (Sodium 3 gm/ Sodium Chloride) 100 mls @ 200 mls/hr IV Q6H [facility] Stop: 07/12/20 00:29 Ampicillin Sodium/Sulbactam (Sodium 3 gm/ Sodium Chloride) 100 mls @ 200 mls/hr IV Q6H [facility] Stop: 07/12/20 00:59 Last Admin: 07/12/20 00:36 Dose: 200 mls/hr Documented by: Ibuprofen (Motrin) 800 mg PO Q8H PRN PRN Reason: mild pain or fever Ketorolac Tromethamine (Toradol) 30 mg IVPUSH Q6H [facility] Stop: 07/12/20 12:31 Ketorolac Tromethamine (Toradol) 30 mg IVPUSH Q6H [facility] Stop: 07/12/20 18:01 Last Admin: 07/12/20 17:43 Dose: Not Given Documented by: Lidocaine/Epinephrine (Xylocaine 2% With Epinephrine 1:100,000) 20 ml .XX .STK- MED ONE Stop: 07/11/20 10:52 Metoclopramide HCl (Reglan) 10 mg IVPUSH ONETIME ONE Stop: 07/10/20 22:35 Last Admin: 07/10/20 22:51 Dose: 10 mg Documented by: Metoclopramide HCl (Reglan) 10 mg IVPUSH ONETIME ONE Stop: 07/11/20 06:53 Last Admin: 07/11/20 07:57 Dose: 10 mg Documented by: Morphine Sulfate (Duramorph Pf) Confirm Administered Dose 10 mg .ROUTE .STK-MED ONE Stop: 07/11/20 12:53 Morphine Sulfate (Duramorph Pf) Confirm Administered Dose 10 mg .ROUTE .STK-MED ONE Stop: 07/13/20 07:23 Ondansetron HCl (Zofran) Confirm Administered Dose 4 mg .ROUTE .STK-MED ONE Stop: 07/11/20 12:53 Ondansetron HCl (Zofran) Confirm Administered Dose 4 mg .ROUTE .STK-MED ONE Stop: 07/11/20 12:53 Propofol (Diprivan 20 Ml) Confirm Administered Dose 200 mg .ROUTE .STK-MED ONE Stop: 07/11/20 12:53 Sertraline HCl (Zoloft) 50 mg PO ONETIME ONE Stop: 07/10/20 13:49 Last Admin: 07/10/20 14:05 Dose: 50 mg Documented by: - Problem List & Annotations (1) S/P primary low transverse SNOMED Code(s): 644299897, 29445457, 151897556, 580841967, [id number] Code(s): Z98.891 - HISTORY OF UTERINE SCAR FROM PREVIOUS SURGERY Status: Acute Current Visit: Yes - Problem List Review Problem List Initiated/Reviewed/Updated: Yes - Assessment Assessment:: Agree with assessment - Plan Plan:: BP check in 1 week Wound check in 2 weeks Preclampsia precautions
[2020-07-14] MEDS: Docusate Sodium 100 MG Cap PO SCH (09:07)
[2020-07-14 09:22] VITALS: BP 123/82; PULSE 100
== END 2020-07-14 15:15 | disposition home or self-care (01) | DRG 540 ==
LOC: MW.OBCHECK 11:33 → MW.OB 13:54 → OBSVTOIN 07-11 10:58 → MW.OB 07-11 18:55
PROVIDERS: ADMIT Obstetrics & Gynecology; ATTEND Obstetrics & Gynecology
PROC: 3E0P7VZ Introduction of Hormone into Female Reproductive, Via Natural or Artificial Opening (ICD-10-PCS; 2020-07-10)
PROC: 10907ZC Drainage of Amniotic Fluid, Therapeutic from Products of Conception, Via Natural or Artificial Opening (ICD-10-PCS; 2020-07-10)
PROC: 10D00Z1 Extraction of Products of Conception, Low, Open Approach (ICD-10-PCS; principal; 2020-07-11)
DX: O14.14 Severe pre-eclampsia complicating childbirth (principal); O13.4 Gestational [pregnancy-induced] hypertension without significant proteinuria, complicating childbirth; Z37.0 Single live birth; O99.02 Anemia complicating childbirth; D64.9 Anemia, unspecified; O35.8XX0 Maternal care for other (suspected) fetal abnormality and damage, not applicable or unspecified; M35.00 Sjogren syndrome, unspecified; Z3A.37 37 weeks gestation of pregnancy; O76 Abnormality in fetal heart rate and rhythm complicating labor and delivery; Z11.59 Encounter for screening for other viral diseases
CPT/HCPCS: 01967; 01968; 36415; 36430; 59025; 74018; 74018-26; 76819; 76819-26; 80053; 82570; 82803; 83735; 84156; 84550; 85007; 85027; 85460; 86592; 86850; 86900; 86901; 88307; A9270-GY; J0295; J0690; J1885; J2270; J2405; J2704; J2765; J2792; J2795; J3010; J3475; J7030; J7050; J7120; U0002

== ENCOUNTER 2020-09-03 21:53 | Emergency (ER) | payer BC ==
--- NOTE | 2020-09-03 22:48 | EDM.PDOC ---
ED HPI GENERAL MEDICAL PROBLEM - General Stated Complaint: left foot injury Time Seen by Provider: 09/03/20 22:42 - History of Present Illness INITIAL COMMENTS - FREE TEXT/NARRATIVE: History of present illness: She was chasing her baby tonight and caught her foot on a piece of furniture. Pain and tenderness in the left foot. Hurts to try to walk. It is swelling up. Nothing makes it better. Pain is moderately severe. Review of systems: As per history of present illness and below otherwise all systems reviewed and negative. Past medical history: As per history of present illness and as reviewed below otherwise noncontributory. Surgical history: As per history of present illness and as reviewed below otherwise noncontributory. Social history: No reported history of drug or alcohol abuse. Family history: As per history of present illness and as reviewed below otherwise noncontributory. Physical exam: Constitutional - well developed, well-nourished and in no acute distress HEENT - normocephalic, no evidence of trauma - external nose and mouth normal - no mass in neck and no JVD - mucosae moist EYES - full EOM, PERRL, no icterus - no evidence of inflammation, injection, or drainage Respiratory - no respiratory distress, equal bilateral expansion Cardiovascular-good capillary refill and warm pink skin in the toes of the left foot Musculoskeletal tender swelling of the distal metatarsal area over the third fourth and fifth metatarsals of the left foot. Other neal no gross deformity of long bones or joints - no tenderness, swelling or edema Neurologic -patient intact in the distal toes of left foot alert and oriented times four - CN II-XII grossly intact - motor sensory and coordination symmetrically normal Psychiatric - appropriate mood and affect with normal thought content Hematologic - No petechiae or purpura - mucosa appropriate color and sclera not pale - normal nail bed color and refill Integument - no rash or evidence of trauma - normal turgor Diagnostics: [] Therapeutics: [] Impression: [] Plan: [] Definitive disposition and diagnosis as appropriate pending reevaluation and review of above. Left Foot Pain Score (Numeric/FACES): 8 - Related Data Allergies Allergy/AdvReac Type Severity Reaction Status Date / Time No Known Allergies Allergy Verified 07/10/20 11:48 Home Meds: Home Meds Sertraline HCl 50 mg PO BEDTIME 07/31/19 [History] Iron 1 tab PO DAILY 05/22/20 [History] Pnv No.95/Ferrous Fum/Folic AC [ Vitamin Tablet] 1 tab PO DAILY 05/22/20 [History] Past Medical History - Past Health History Medical/Surgical History: Denies Medical/Surgical History HEENT History: Reports: Other (See Below) Other HEENT History: wears glasses, has bottom permanent retainer, chronic sinusitis Cardiovascular History: Reports: None Respiratory History: Reports: None Gastrointestinal History: Reports: None Genitourinary History: Reports: None [employer] History: Reports: None Musculoskeletal History: Reports: Fracture Neurological History: Reports: None Psychiatric History: Reports: None Endocrine/Metabolic History: Reports: None Hematologic History: Reports: None Immunologic History: Reports: Other (See Below) Oncologic (Cancer) History: Reports: None Dermatologic History: Reports: None - Infectious Disease History Infectious Disease History: Reports: Chicken Pox - Past Surgical History Head Surgeries/Procedures: Reports: None HEENT Surgical History: Reports: Tonsillectomy Cardiovascular Surgical History: Reports: None Respiratory Surgical History: Reports: None GI Surgical History: Reports: Cholecystectomy Female Surgical History: Reports: None Endocrine Surgical History: Reports: None Neurological Surgical History: Reports: None Musculoskeletal Surgical History: Reports: Other (See Below) Other Musculoskeletal Surgeries/Procedures:: Right and left arm surgery, (left x3, rt x1) with hardware removal Oncologic Surgical History: Reports: None Dermatological Surgical History: Reports: Other (See Below) Social & Family History - Family History Family Medical History: Noncontributory - Caffeine Use Caffeine Use: Reports: Coffee, Tea Review of Systems - Review of Systems Review Of Systems: Comprehensive ROS is negative, except as noted in HPI. ED EXAM, GENERAL - Physical Exam Exam: See Below Free Text/Narrative:: Physical exam as in the HPI Course - Vital Signs Last Recorded V/S: Last Vital Signs Temp 97.9 F 09/03/20 22:42 Pulse 78 09/03/20 22:42 Resp 18 09/03/20 22:42 BP 145/113 H 09/03/20 22:42 Pulse Ox 96 09/03/20 22:42 - Orders/Labs/Meds Orders: Active Orders 24 hr Category Date Time Status Foot Comp Min 3V Lt [CR] Stat Exams 09/03/20 22:45 Ordered Departure - Departure Time of Disposition: 23:11 Disposition: Home, Self-Care 01 Condition: Good Clinical Impression: Foot sprain - Discharge Information Instructions: Foot Sprain Referrals: PCP,None [Primary Care Provider] - Additional Instructions: [facility] - [facility] Professional Building [address] [place] [address] [facility] [address], [place] [address] [facility] [address] [place] [id number] The following information is given to patients seen in the emergency department who are being discharged to home. This information is to outline your options for follow-up care. We provide all patients seen in our emergency department with a follow-up referral. The need for follow-up, as well as the timing and circumstances, are variable depending upon the specifics of your emergency department visit. If you don't have a primary care physician on staff, we will provide you with a referral. We always advise you to contact your personal physician following an emergency department visit to inform them of the circumstance of the visit and for follow-up with them and/or the need for any referrals to a consulting specialist. The emergency department will also refer you to a specialist when appropriate. This referral assures that you have the opportunity for follow-up care with a specialist. All of these measure are taken in an effort to provide you with optimal care, which includes your follow-up. Under all circumstances we always encourage you to contact your private physician who remains a resource for coordinating your care. When calling for follow-up care, please make the office aware that this follow-up is from your recent emergency room visit. If for any reason you are refused follow-up, please contact the [facility] Emergency Department at and asked to speak to the emergency department charge nurse. Sepsis Event Note (ED) - Focused Exam Vital Signs: Vital Signs Temp Pulse Resp BP Pulse Ox 09/03/20 22:42 97.9 F 78 18 145/113 H 96 - My Orders Last 24 Hours: My Active Orders 09/03/20 22:45 Foot Comp Min 3V Lt [CR] Stat - Assessment/Plan Last 24 Hours: My Active Orders 09/03/20 22:45 Foot Comp Min 3V Lt [CR] Stat
--- NOTE | 2020-09-03 23:26 | CR ---
Indication: Pain Technique: Three views of the left foot Comparison: None Findings: No fracture is demonstrated. The joints are anatomically aligned. There is no significant soft tissue edema. Impression: No acute abnormality. Dictated by Kelsi Salcedo MD @ Sep 03 2020 11:23PM Signed by Dr. Kelsi Salcedo @ Sep 03 2020 11:24PM
[2020-09-04 00:28] VITALS: BP 143/88; PULSE 82
== END 2020-09-03 23:57 | disposition home or self-care (01) ==
LOC: MW.ED 21:53
DX: S93.602A Unspecified sprain of left foot, initial encounter (principal); Z79.899 Other long term (current) drug therapy; W23.0XXA Caught, crushed, jammed, or pinched between moving objects, initial encounter
CPT/HCPCS: 73630-26-LT; 73630-LT; 99282; 99283-25

== ENCOUNTER 2020-10-03 22:59 | Emergency (ER) | payer BC ==
[2020-10-03] MEDS ORDERED: Sodium Chloride 0.9% 10 ML Syringe FLUSH PRN (23:17)
[2020-10-03] MEDS ORDERED: Ketorolac 15 MG/ML SDV IVPUSH ONE (23:17)
[2020-10-03] MEDS ORDERED: Ondansetron 4 MG/2 ML SDV IVPUSH ONE (23:17)
[2020-10-03] MEDS ORDERED: Sodium Chloride 0.9% 2.5 ML Syringe FLUSH PRN (23:17)
[2020-10-03] MEDS ORDERED: Sodium Chloride 0.9% 1,000 ML IV ONE (23:17)
[2020-10-04 00:05] LABS: BLOOD UREA NITROGEN,BUN 14 mg/dL (7.0-18.0); CARBON DIOXIDE,CO2 23.6 mmol/L (21.0-32.0); CHLORIDE,CL 107 mmol/L (98-107); GLUCOSE RANDOM 66 mg/dL (74-106); LIPASE 184 U/L (73-393); POTASSIUM,K 3.5 mmol/L (3.5-5.1); SODIUM,NA 143 mmol/L (136-145)
--- NOTE | 2020-10-04 01:15 | CT ---
INDICATION: Right upper quadrant and flank pain. TECHNIQUE: Axial images were obtained from the diaphragm to the pubic symphysis. Reformats were obtained in the coronal and sagittal plane. IV Contrast: None Oral Contrast: None COMPARISON: None. FINDINGS: Lower chest: Bibasilar discoid atelectasis. Liver: Unremarkable. Normal in size and attenuation. No masses. Gallbladder and bile ducts: Status post cholecystectomy. Spleen: Unremarkable. Normal in size without mass. Pancreas: Unremarkable. No mass or inflammation. Adrenal glands: Unremarkable. No nodules. Kidneys: Nephrolithiasis without ureteral stone or hydronephrosis. Vasculature: Unremarkable. GI tract: The stomach is unremarkable. No dilated loops of large or small intestine. Appendix unremarkable. Pelvis: Calcifications in the uterus, likely calcified fibroid. Tampon in the vaginal vault. Bones: Bone island of the roof of the right acetabulum. IMPRESSION: 1. Nephrolithiasis although without evidence of ureteral stone or hydronephrosis. 2. No dilated bowel or localized inflammation. Please note that all CT scans at this facility use dose modulation, iterative reconstruction, and/or weight-based dosing when appropriate to reduce radiation dose to as low as reasonably achievable. Dictated by Kadeem Chaudhari MD @ Oct 04 2020 1:09AM Signed by Dr. Kadeem Chaudhari @ Oct 04 2020 1:14AM
--- NOTE | 2020-10-04 01:28 | EDM.PDOC ---
ED HPI GENERAL MEDICAL PROBLEM - General Chief Complaint: Gastrointestinal Problem Stated Complaint: SICK Time Seen by Provider: 10/03/20 23:11 - History of Present Illness INITIAL COMMENTS - FREE TEXT/NARRATIVE: HISTORY AND PHYSICAL: History of present illness: This is a 35-year-old female who presents ER today complaining of right upper quadrant abdominal discomfort that started earlier this evening. Patient reports that she has a history of a cholecystectomy in the past. Patient reports that earlier today she was tolerating p.o. solids and liquid without any difficulty. Patient reports that she went out with her girlfriends today to have a couple drinks and drink maybe 1 drink per hour for total of approximate 4-5 drinks this evening. Patient reports at around midnight she started experiencing right upper quadrant discomfort. Patient reports pain feels different than her prior gallbladder pain. Patient complains of nausea with no vomiting. No diarrhea, no fever shakes chills. No hematuria. No dysuria f requency urgency. No melena or bright red blood per rectum. Reports the pain is constant in nature. Pain does not radiate. Patient denies any lower abdominal discomfort below her umbilicus. Patient reports that she just recently gave and she is currently breast- feeding and is requesting no medication that might adversely affect her baby. Patient does have a history of Sjogren's disease with Raynaud's. Patient denies any history of lupus, kidney stones, renal disease, esophageal issues, issues with her hands or telangiectasias. Review of systems: As per history of present illness and below otherwise all systems reviewed and negative. Past medical history: As per history of present illness and as reviewed below otherwise noncontributory. Surgical history: As per history of present illness and as reviewed below otherwise noncontributory. Social history: No reported history of drug or alcohol abuse. Family history: As per history of present illness and as reviewed below otherwise noncontributory. Physical exam: Constitutional: Patient is oriented to person, place, and time. Appears well- developed and well-nourished. No distress. HEENT: Moist mucous membranes Head: Normocephalic and atraumatic Eyes: Right eye exhibits no discharge. Left eye exhibits no discharge. No scleral icterus Neck: Normal range of motion. No tracheal deviation present. Cardiovascular: Normal rate and regular rhythm. Pulmonary: Effort normal, no respiratory distress. Abd: Soft, nondistended, no rebound/guarding, no psoas or obturator signs, no tenderness at Mcberney's point, no Leary's sign. Pt does not present with an exam that would be consistent with an acute surgical abdomen at this time, positive tenderness palpation right upper quadrant and right flank. Musculoskeletal: Normal range of motion Neurologic: Alert and oriented to person, place and time. Skin: [place], warm and dry. Psychiatric: Normal mood and affect. Behavior is normal. Judgment and thought content normal. Nursing note and vital signs have been reviewed Diagnostics: CT the abdomen pelvis: Nephrolithiasis without evidence of ureteral stone or hydronephrosis. CBC, CMP, lipase within normal limits. Therapeutics: Toradol, Zofran, NSS Assessment and plan: 35-year-old female who presents ER today secondary to right upper quadrant abdominal pain. Patient is status post cholecystectomy. Patient abdominal exam is not consistent with an acute surgical abdomen. Patient's labs within the ED were within normal limits. Patient CT scan of her abdomen pelvis did not reveal any acute pathology to explain the pain. Patient's urine is clear. Patient has been given Toradol and Zofran here in the ED with significant relief in her discomfort and appears much more comfortable resting in bed. Etiology of her pain is unclear. This may be related to a gastroenteritis versus food intolerance. No emergent causes of her abdominal pain has been identified here in the ED. At this time patient does not qualify for inpatient level of care for further evaluation of her pain. Patient be discharged home with a prescription for Zofran and Bentyl to assist with her discomfort. Repeat abdominal exam at 1:15 AM: Abd: Soft, nondistended, no rebound/guarding, no psoas or obturator signs, no tenderness at Mcberney's point, no Leary's sign. Pt does not present with an exam that would be consistent with an acute surgical abdomen at this time, mild tenderness palpation right upper quadrant. Minimal tenderness palpation right flank. Reassessment at the time of disposition demonstrates that the patient is in no acute distress. The patient has remained stable throughout the entire ED visit and is without objective evidence for acute process requiring urgent intervention or hospitalization. The patient is stable for discharge, counseling is provided as documented above, discussed symptomatic treatment and specific conditions for return. I have spoken with the patient/caregiver and discussed todays findings, in addition to providing specific details for the plan of care. Questions are answered and there is agreement with the plan. Definitive disposition and diagnosis as appropriate pending reevaluation and review of above. Right Lower Abdomen Pain Score (Numeric/FACES): 10 - Related Data Allergies Allergy/AdvReac Type Severity Reaction Status Date / Time No Known Allergies Allergy Verified 10/03/20 23:04 Home Meds: Home Meds Sertraline HCl 50 mg PO BEDTIME 07/31/19 [History] Pnv No.95/Ferrous Fum/Folic AC [ Vitamin Tablet] 1 tab PO DAILY 05/22/20 [History] Control 10/03/20 [History] Dicyclomine [Bentyl] 20 mg PO TID PRN #15 tab 10/04/20 [Rx] Ondansetron [Zofran ODT] 4 mg PO Q6H PRN #12 tab.dis 10/04/20 [Rx] Past Medical History - Past Health History Medical/Surgical History: Denies Medical/Surgical History HEENT History: Reports: Other (See Below) Other HEENT History: wears glasses, has bottom permanent retainer, chronic sinusitis Cardiovascular History: Reports: None Respiratory History: Reports: None Gastrointestinal History: Reports: None Genitourinary History: Reports: None ANESTHESIA TECHNICIAN History: Reports: None Other ANESTHESIA TECHNICIAN History: 07/11/20 Musculoskeletal History: Reports: Fracture Neurological History: Reports: None Psychiatric History: Reports: None Endocrine/Metabolic History: Reports: None Hematologic History: Reports: None Immunologic History: Reports: Other (See Below) Oncologic (Cancer) History: Reports: None Dermatologic History: Reports: None - Infectious Disease History Infectious Disease History: Reports: Chicken Pox - Past Surgical History Head Surgeries/Procedures: Reports: None HEENT Surgical History: Reports: Tonsillectomy Cardiovascular Surgical History: Reports: None Respiratory Surgical History: Reports: None GI Surgical History: Reports: Cholecystectomy Female Surgical History: Reports: None Endocrine Surgical History: Reports: None Neurological Surgical History: Reports: None Musculoskeletal Surgical History: Reports: Other (See Below) Other Musculoskeletal Surgeries/Procedures:: Right and left arm surgery, (left x3, rt x1) with hardware removal Oncologic Surgical History: Reports: None Dermatological Surgical History: Reports: Other (See Below) Social & Family History - Family History Family Medical History: Noncontributory - Tobacco Use Tobacco Use Status *Q: Never Tobacco User - Caffeine Use Caffeine Use: Reports: Coffee - Recreational Drug Use Recreational Drug Use: No ED ROS GENERAL - Review of Systems Review Of Systems: See Below ED EXAM, GENERAL - Physical Exam Exam: See Below Course - Vital Signs Last Recorded V/S: Last Vital Signs Temp 96.1 F L 10/03/20 23:05 Pulse 85 10/04/20 00:36 Resp 14 10/04/20 00:36 BP 111/69 10/04/20 00:36 Pulse Ox 96 10/04/20 00:36 - Orders/Labs/Meds Orders: Active Orders 24 hr Category Date Time Status Sodium Chloride 0.9% [Saline Flush] Med 10/03/20 23:17 Active 10 ml FLUSH ASDIRECTED PRN Sodium Chloride 0.9% [Saline Flush] Med 10/03/20 23:17 Active 2.5 ml FLUSH ASDIRECTED PRN Saline Lock Insert [OM.PC] Stat Oth 10/03/20 23:17 Ordered Medication Orders Sodium Chloride (Saline Flush) 10 ml FLUSH ASDIRECTED PRN PRN Reason: Keep Vein Open Sodium Chloride (Saline Flush) 2.5 ml FLUSH ASDIRECTED PRN PRN Reason: Keep Vein Open Labs: Laboratory Tests 10/03/20 10/03/20 10/03/20 Range/Units 23:20 23:20 23:40 WBC 8.92 (4.0-11.0) K/uL RBC 4.28 L (4.30-5.90) M/uL Hgb 12.1 (12.0-16.0) g/dL Hct 37.6 (36.0-46.0) % MCV 87.9 (80.0-98.0) fL MCH 28.3 (27.0-32.0) pg MCHC 32.2 (31.0-37.0) g/dL RDW Std Deviation 42.2 (28.0-62.0) fl RDW Coeff of Rip 13 (11.0-15.0) % Plt Count 240 (150-400) K/uL MPV 10.80 (7.40-12.00) fL Neut % (Auto) 55.1 (48.0-80.0) % Lymph % (Auto) 30.8 (16.0-40.0) % [place] % (Auto) 8.7 (0.0-15.0) % Eos % (Auto) 5.3 (0.0-7.0) % Baso % (Auto) 0.1 (0.0-1.5) % Neut # (Auto) 4.9 (1.4-5.7) K/uL Lymph # (Auto) 2.8 H (0.6-2.4) K/uL [place] # (Auto) 0.8 (0.0-0.8) K/uL Eos # (Auto) 0.5 (0.0-0.7) K/uL Baso # (Auto) 0.0 (0.0-0.1) K/uL Nucleated RBC % 0.0 /100WBC Nucleated RBCs # 0 K/uL Sodium (136-145) mmol/L Potassium (3.5-5.1) mmol/L Chloride (98-107) mmol/L Carbon Dioxide (21.0-32.0) mmol/L BUN (7.0-18.0) mg/dL Creatinine (0.6-1.0) mg/dL Est Cr Clr Drug Dosing mL/min Estimated GFR (MDRD) ml/min Glucose (74-106) mg/dL Calcium (8.5-10.1) mg/dL Total Bilirubin (0.2-1.0) mg/dL AST (15-37) IU/L ALT (14-63) IU/L Alkaline Phosphatase (46-116) U/L Total Protein (6.4-8.2) g/dL Albumin (3.4-5.0) g/dL Globulin (2.6-4.0) g/dL Albumin/Globulin Ratio (0.9-1.6) Lipase (73-393) U/L Urine Color YELLOW Urine Appearance CLEAR Urine pH 6.0 (5.0-8.0) Ur Specific [place] 1.010 (1.001-1.035) Urine Protein NEGATIVE (NEGATIVE) mg/dL Urine Glucose (UA) NEGATIVE (NEGATIVE) mg/dL Urine Ketones NEGATIVE (NEGATIVE) mg/dL Urine Occult Blood NEGATIVE (NEGATIVE) Urine Nitrite NEGATIVE (NEGATIVE) Urine Bilirubin NEGATIVE (NEGATIVE) Urine Urobilinogen 0.2 (<2.0) EU/dL Ur Leukocyte Esterase NEGATIVE (NEGATIVE) Urine HCG, Qual NEGATIVE (NEGATIVE) 10/03/20 Range/Units 23:40 WBC (4.0-11.0) K/uL RBC (4.30-5.90) M/uL Hgb (12.0-16.0) g/dL Hct (36.0-46.0) % MCV (80.0-98.0) fL MCH (27.0-32.0) pg MCHC (31.0-37.0) g/dL RDW Std Deviation (28.0-62.0) fl RDW Coeff of Rip (11.0-15.0) % Plt Count (150-400) K/uL MPV (7.40-12.00) fL Neut % (Auto) (48.0-80.0) % Lymph % (Auto) (16.0-40.0) % [place] % (Auto) (0.0-15.0) % Eos % (Auto) (0.0-7.0) % Baso % (Auto) (0.0-1.5) % Neut # (Auto) (1.4-5.7) K/uL Lymph # (Auto) (0.6-2.4) K/uL [place] # (Auto) (0.0-0.8) K/uL Eos # (Auto) (0.0-0.7) K/uL Baso # (Auto) (0.0-0.1) K/uL Nucleated RBC % /100WBC Nucleated RBCs # K/uL Sodium 143 (136-145) mmol/L Potassium 3.5 (3.5-5.1) mmol/L Chloride 107 (98-107) mmol/L Carbon Dioxide 23.6 (21.0-32.0) mmol/L BUN 14 (7.0-18.0) mg/dL Creatinine 0.7 (0.6-1.0) mg/dL Est Cr Clr Drug Dosing 98.71 mL/min Estimated GFR (MDRD) > 60.0 ml/min Glucose 66 L (74-106) mg/dL Calcium 9.0 (8.5-10.1) mg/dL Total Bilirubin 0.2 (0.2-1.0) mg/dL AST 71 H (15-37) IU/L ALT 38 (14-63) IU/L Alkaline Phosphatase 113 (46-116) U/L Total Protein 8.2 (6.4-8.2) g/dL Albumin 3.9 (3.4-5.0) g/dL Globulin 4.3 H (2.6-4.0) g/dL Albumin/Globulin Ratio 0.9 (0.9-1.6) Lipase 184 (73-393) U/L Urine Color Urine Appearance Urine pH (5.0-8.0) Ur Specific [place] (1.001-1.035) Urine Protein (NEGATIVE) mg/dL Urine Glucose (UA) (NEGATIVE) mg/dL Urine Ketones (NEGATIVE) mg/dL Urine Occult Blood (NEGATIVE) Urine Nitrite (NEGATIVE) Urine Bilirubin (NEGATIVE) Urine Urobilinogen (<2.0) EU/dL Ur Leukocyte Esterase (NEGATIVE) Urine HCG, Qual (NEGATIVE) Meds: Medications Generic Name Dose Route Start Last Admin Trade Name Freq PRN Reason Stop Dose Admin Sodium Chloride 10 ml 10/03/20 23:17 Saline Flush FLUSH ASDIRECTED PRN Keep Vein Open Sodium Chloride 2.5 ml 10/03/20 23:17 Saline Flush FLUSH ASDIRECTED PRN Keep Vein Open Discontinued Medications Generic Name Dose Route Start Last Admin Trade Name Freq PRN Reason Stop Dose Admin Sodium Chloride 1,000 mls @ 999 mls/hr 10/03/20 23:17 10/03/20 23:34 Normal Saline IV 10/04/20 00:17 999 mls/hr .Bolus ONE Administration Ketorolac Tromethamine 15 mg 10/03/20 23:17 10/03/20 23:36 Toradol IVPUSH 10/03/20 23:18 15 mg ONETIME ONE Administration Ondansetron HCl 4 mg 10/03/20 23:17 10/03/20 23:35 Zofran IVPUSH 10/03/20 23:18 4 mg ONETIME ONE Administration Departure - Departure Time of Disposition: 01:26 Disposition: Home, Self-Care 01 Condition: Good Clinical Impression: Abdominal pain - Discharge Information Instructions: Abdominal Pain, Adult Referrals: PCP,None [Primary Care Provider] - Additional Instructions: You were seen and evaluated in the ER today for your abdominal pain. The cause of your abdominal pain has not been identified with the test that we have conducted here in the ED. There is not appear to be an emergent cause at this t delilah for your abdominal pain. Please make an appointment to follow-up with your doctor on Monday for reevaluation of the pain persists. Please return to the ER if your pain worsens or if you have any new symptoms or concerns. You will be discharged home with a prescription for Zofran to assist with nausea as well as Bentyl to assist with abdominal spasms. The following information is given to patients seen in the emergency department who are being discharged to home. This information is to outline your options for follow-up care. We provide all patients seen in our emergency department with a follow-up referral. The need for follow-up, as well as the timing and circumstances, are variable depending upon the specifics of your emergency department visit. If you don't have a primary care physician on staff, we will provide you with a referral. We always advise you to contact your personal physician following an emergency department visit to inform them of the circumstance of the visit and for follow-up with them and/or the need for any referrals to a consulting specialist. The emergency department will also refer you to a specialist when appropriate. This referral assures that you have the opportunity for follow-up care with a specialist. All of these measure are taken in an effort to provide you with optimal care, which includes your follow-up. Under all circumstances we always encourage you to contact your private physician who remains a resource for coordinating your care. When calling for follow-up care, please make the office aware that this follow-up is from your recent emergency room visit. If for any reason you are refused follow-up, please contact the [facility] Emergency Department at and asked to speak to the emergency department charge nurse. [facility] - [facility] [address] [place] [id number] [facility] [address] [place] [id number] Sepsis Event Note (ED) - Evaluation Sepsis Screening Result: Possible Sepsis Risk - Focused Exam Vital Signs: Vital Signs Temp Pulse Resp BP Pulse Ox 10/04/20 00:36 85 14 111/69 96 10/03/20 23:05 96.1 F L 96 18 131/91 H 95 - My Orders Last 24 Hours: My Active Orders 10/03/20 23:17 Sodium Chloride 0.9% [Saline Flush] 10 ml FLUSH ASDIRECTED PRN Sodium Chloride 0.9% [Saline Flush] 2.5 ml FLUSH ASDIRECTED PRN Saline Lock Insert [OM.PC] Stat - Assessment/Plan Last 24 Hours: My Active Orders 10/03/20 23:17 Sodium Chloride 0.9% [Saline Flush] 10 ml FLUSH ASDIRECTED PRN Sodium Chloride 0.9% [Saline Flush] 2.5 ml FLUSH ASDIRECTED PRN Saline Lock Insert [OM.PC] Stat
[2020-10-04 02:02] VITALS: BP 111/70; PULSE 81
== END 2020-10-04 01:40 | disposition home or self-care (01) ==
LOC: MW.ED 22:59
DX: R10.11 Right upper quadrant pain (principal); Z79.899 Other long term (current) drug therapy; Z90.89 Acquired absence of other organs
CPT/HCPCS: 36415; 74176; 80053; 81003; 81025; 83690; 85025; 96374; 96375; 99284; J1885; J2405; J7030

== ENCOUNTER 2023-12-16 00:01 | Emergency (ER) | payer BC ==
[2023-12-16] MEDS ORDERED: Sodium Chloride 0.9% 2.5 ML Syringe FLUSH PRN (00:24)
[2023-12-16] MEDS ORDERED: Sodium Chloride 0.9% 10 ML Syringe FLUSH PRN (00:24)
[2023-12-16] MEDS ORDERED: Ondansetron 4 MG Tab.DIS PO ONE (00:24)
[2023-12-16] MEDS ORDERED: Sodium Chloride 0.9% 1,000 ML IV ONE (00:24)
[2023-12-16] MEDS ORDERED: Morphine 4 MG/ML Syringe IVPUSH ONE (00:24)
[2023-12-16] MEDS ORDERED: Ondansetron 4 MG/2 ML SDV IVPUSH ONE (00:36)
[2023-12-16 00:47] LABS: BASOPHILS ABSOLUTE AUTO 0.01 K/uL (0.00-0.20); BASOPHILS PERCENT AUTO 0.1 % (0.0-1.0); EOSINOPHILS ABSOLUTE AUTO 0.01 K/uL (0.00-0.45); EOSINOPHILS PERCENT AUTO 0.1 % (0.0-6.0); HEMATOCRIT 37.6 % (37.0-47.0); HEMOGLOBIN 12.9 g/dL (12.0-16.0); LYMPHOCYTES PERCENT AUTO 42.3 % (24.0-44.0); MEAN CORPUSCULAR HEMOGLOBIN 32.1 pg (28.0-32.0); MEAN CORPUSCULAR HGB CONC 34.3 g/dL (32.0-36.0); MEAN CORPUSCULAR VOLUME 93.5 fL (83.0-99.0); MEAN PLATELET VOLUME 10.9 fL (9.4-12.3); MONOCYTES ABSOLUTE AUTO 0.63 K/uL (0.00-0.80); MONOCYTES PERCENT AUTO 8.3 % (0.0-8.0); NEUTROPHILS ABSOLUTE AUTO 3.71 K/uL (1.80-7.70); NEUTROPHILS PERCENT AUTO 49.2 % (41.0-71.0); PLATELET COUNT,PLT 188 K/uL (150-400); RED BLOOD CELL COUNT 4.02 M/uL (4.10-5.30); WHITE BLOOD CELL COUNT,WBC 7.56 K/uL (3.9-11.3)
[2023-12-16 01:20] LABS: APPEARANCE,URINE CLEAR; BILIRUBIN,URINE NEGATIVE (NEGATIVE); COLOR,URINE YELLOW; GLUCOSE,URINE NEGATIVE (NEGATIVE); KETONES,URINE NEGATIVE (NEGATIVE); LEUKOCYTE ESTERASE,URINE NEGATIVE (NEGATIVE); NITRITE,URINE POSITIVE (NEGATIVE); OCCULT BLOOD,URINE NEGATIVE (NEGATIVE); PROTEIN,URINE NEGATIVE (NEGATIVE); UROBILINOGEN,URINE 0.2 EU/dL (<2.0)
[2023-12-16 01:30] LABS: A/G RATIO 0.9 (0.9-1.6); ALBUMIN 3.7 g/dL (3.4-5.0); BILIRUBIN TOTAL 0.2 mg/dL (0.2-1.0); CALCIUM 8.9 mg/dL (8.5-10.1); CARBON DIOXIDE,CO2 21.8 mmol/L (21.0-32.0); CREATININE 0.7 mg/dL (0.6-1.0); EST CRCL DRUG DOSING (CG) 87.87 mL/min; POTASSIUM,K 3.6 mmol/L (3.5-5.1); PROTEIN TOTAL,TP 7.9 g/dL (6.4-8.2)
[2023-12-16 01:30] LABS: BACTERIA,URINE NOT SEEN (NEGATIVE); EPITHELIAL CELLS,URINE NOT SEEN (NONE-FEW); RBC,URINE NONE SEEN (0-2/HPF); WBC,URINE NONE SEEN (0-5/HPF)
[2023-12-16] MEDS ORDERED: Iopamidol 755 MG/ML 500 ML Multipack Bottle IVPUSH ONE (01:45)
[2023-12-16] MEDS ORDERED: Ketorolac 30 MG/ML SDV IVPUSH ONE (02:48)
[2023-12-16 03:12] VITALS: BP 129/78; PULSE 84
== END 2023-12-16 03:11 | disposition home or self-care (01) ==
LOC: MW.ED 00:01
DX: R10.31 Right lower quadrant pain (principal); N39.0 Urinary tract infection, site not specified; N83.209 Unspecified ovarian cyst, unspecified side; Z79.899 Other long term (current) drug therapy
CPT/HCPCS: 36415; 74177; 80053; 81001; 83690; 84703; 85025; 96361; 96374; 96375; 99284; J1885; J2270; J2405; J3490; J7030; Q9967

== ENCOUNTER 2025-08-15 19:38 | Emergency (ER) | payer BC ==
[2025-08-15 19:48] VITALS: BP 151/106; PULSE 96
[2025-08-15] MEDS ORDERED: Sodium Chloride 0.9% 10 ML Syringe FLUSH PRN (19:56)
[2025-08-15] MEDS ORDERED: Sodium Chloride 0.9% 2.5 ML Syringe FLUSH PRN (19:56)
[2025-08-15 20:26] LABS: BASOPHILS ABSOLUTE AUTO 0.01 K/uL (0.00-0.20); BASOPHILS PERCENT AUTO 0.1 % (0.0-1.0); EOSINOPHILS ABSOLUTE AUTO 0.00 K/uL (0.00-0.45); EOSINOPHILS PERCENT AUTO 0.0 % (0.0-6.0); IMMATURE GRAN ABSOLUTE AUTO 0.01 K/uL (0.00-0.05); IMMATURE GRAN PERCENT AUTO 0.1 % (0.0-0.4); LYMPHOCYTES ABSOLUTE AUTO 2.12 K/uL (1.00-4.80); LYMPHOCYTES PERCENT AUTO 26.6 % (24.0-44.0); MEAN PLATELET VOLUME 10.2 fL (9.4-12.3); MONOCYTES ABSOLUTE AUTO 0.92 K/uL (0.00-0.80); MONOCYTES PERCENT AUTO 11.5 % (0.0-8.0); NEUTROPHILS ABSOLUTE AUTO 4.91 K/uL (1.80-7.70); NEUTROPHILS PERCENT AUTO 61.7 % (41.0-71.0); NRBC ABSOLUTE 0.00 K/uL (0.00-0.02); NRBC PERCENT 0.0 /100WBC (0.0-0.2); PLATELET COUNT,PLT 207 K/uL (150-400); RED BLOOD CELL COUNT 4.24 M/uL (4.10-5.30); WHITE BLOOD CELL COUNT,WBC 7.97 K/uL (3.9-11.3)
[2025-08-15 20:36] LABS: AMPHETAMINES SCREEN, URINE NEGATIVE (CUTOFF=500); BUPRENORPHINE SCREEN,URINE NEGATIVE (CUTOFF=10); METHADONE SCREEN, URINE NEGATIVE (CUTOFF=200); METHAMPHETAMINES SCREEN, URINE NEGATIVE (CUTOFF=500); OXYCODONE SCREEN,URINE NEGATIVE (CUT0FF=100); PCP SCREEN,URINE NEGATIVE (CUTOFF=25); THC SCREEN,URINE 20 NG/ML NEGATIVE (CUTOFF=50)
[2025-08-15 20:52] LABS: A/G RATIO 0.8 (0.9-1.6); ALANINE AMINOTRANSFERASE,ALT 36.0 IU/L (14-63); ASPARTATE AMNIOTRANSFERASE,AST 32.0 IU/L (15-37); BILIRUBIN TOTAL 0.2 mg/dL (0.2-1.0); BLOOD UREA NITROGEN,BUN 10.0 mg/dL (7.0-18.0); CARBON DIOXIDE,CO2 29.7 mmol/L (21.0-32.0); CHLORIDE,CL 99.0 mmol/L (98-107); CREATININE 0.9 mg/dL (0.6-1.0); EST CRCL DRUG DOSING (CG) 70.11 mL/min; ETHANOL BLOOD MEDICAL 273.0 mg/dL; GLUCOSE RANDOM 73.0 mg/dL (74-106); PHOSPHORUS 2.3 mg/dL (2.6-4.7); POTASSIUM,K 2.8 mmol/L (3.5-5.1); PROTEIN TOTAL,TP 8.2 g/dL (6.4-8.2); SODIUM,NA 138.0 mmol/L (136-145)
[2025-08-15 20:56] LABS: ESTIMATED GFR 84.0 mL/min (>60)
== END 2025-08-15 21:22 | disposition left against medical advice (07) ==
LOC: MW.ED 19:38
DX: R25.2 Cramp and spasm (principal); E87.6 Hypokalemia; I10 Essential (primary) hypertension; Z79.899 Other long term (current) drug therapy; Z88.8 Allergy status to other drugs, medicaments and biological substances; Z90.49 Acquired absence of other specified parts of digestive tract
CPT/HCPCS: 36415; 80053; 80305; 80307; 81025; 83735; 84100; 85025; 99283; 99284